=== PATIENT | male | born 1945 | race Caucasian/White ===

== ENCOUNTER 2016-09-07 15:27 | Inpatient (IN) | payer OTHER ==
[~2016-09-07] VITALS: Ht 165.1 cm; Wt 92.9 kg
[2016-09-07] MEDS: METOPROLOL TARTRATE 25 MG TAB PO SCH (00:57)
[2016-09-07] MEDS: DOCUSATE SODIUM 100 MG CAP PO SCH (00:57)
[~2016-09-07 15:27] MED LIST: ALPR-385 PO; ASMIN/60 INH; ASPI81TA28 PO; CHOL1TAB42 PO; CYAN100020 PO; GFNSR600 PO; IBUP-1105 PO; LSN5 PO; MULT-845 PO; NIFE30TA83 PO; PRT40 PO
[2016-09-07] MEDS ORDERED: NITROGLYCERIN OINT 2% 1GM PACKET EXT STA (15:46)
--- NOTE | 2016-09-07 16:08 | DIAGNOSTIC IMAGING REPORT ---
CHEST ONE VIEW PORTABLE HISTORY: Progressive. Atypical CHEST PAIN COMPARISON: Chest 05/19/2016. FINDINGS: No pneumothorax. The upper lung zones are clear. The heart is stable in size. Bibasilar interstitial thickening and hazy opacities have progressed. No pleural effusions. Emphysema. IMPRESSION: Bibasilar interstitial thickening and hazy opacities have progressed. This may represent a developing pneumonia. Electronically signed by: Torrey Villatoro M.D. 09/07/2016 4:06 PM Dictated Date/Time: 09/07/2016 4:04 PM
[2016-09-07] MEDS ORDERED: OPTIRAY 320 IV PRN (16:15)
[2016-09-07] MEDS ORDERED: ESOM45CA PO (16:22)
[2016-09-07] MEDS ORDERED: ZNTT/150 PO (16:22)
[2016-09-07] MEDS ORDERED: LISI-461 PO (16:22)
--- NOTE | 2016-09-07 16:28 | EMERGENCY ROOM VISIT NOTE ---
History Report prepared by Genoveva: Les Duong Under the Supervision of: Dr. Galindo Brown M.D. First contact with patient: 15:41 Chief Complaint: CHEST PAIN Stated Complaint: CHEST PAINS, DIFFICULTY BREATHING History of Present Illness The patient is a 71 year old male who presents to the Emergency Room with complaints of constant chest pain beginning one day prior to arrival. He currently rates his discomfort as a 4-5/10 in severity. The patient associates shortness of breath with today's symptoms. He notes his symptoms worsen with exertion and are better with rest. The patient states he was not doing anything when the pain began yesterday. He notes a history of COPD but does not wear oxygen at home. The patient states he has a history of hypertension, GERD, and pneumonia. He denies a history of a heart attack or fluid on his lungs. The patient denies a cough, fever, and vomiting. Source of History: patient Onset: one day [employer] Position: chest Symptom Intensity: 4-5/10 Timing: constant Modifying Factors (Worsening): exertion Modifying Factors (Relieving): rest Associated Symptoms: + SOB, + chest pain, No cough, No fevers, No vomiting Review of Systems See HPI for pertinent positives & negatives. A total of 10 systems reviewed and were otherwise negative. Past Medical & Surgical Medical Problems: (1) CHEST PAIN, UNSPECIFIED (2) HTN (hypertension) (3) Pneumonia of both lower lobes Surgical Problems: (1) H/O hernia repair Family History Diabetes mellitus FH: heart disease Hypertension Social History Smoking Status: Former Smoker Drug Use: none Marital Status: , Housing Status: lives with family Occupation Status: retired Current/Historical Medications Scheduled Aspirin (Aspirin Ec), 81 MG PO DAILY Cholecalciferol (Vitamin D), 5,000 INTER.UNIT PO QPM Cyanocobalamin (Vitamin B12), 1,000 MCG PO DAILY Esomeprazole Magnesium (Esomeprazole Magnesium), 20 MG PO BID Guaifenesin Ext Rel (Mucinex Ext Rel), 600 MG PO BID Lisinopril (Lisinopril), 10 MG PO QAM Mometasone Furoate (Asmanex Twisthaler 60 Met), 1 PUFF INH BID Multiple Vitamins W/ Minerals (Centrum Silver Adult 50+), 1 TAB PO DAILY Nifedipine Ext Rel (Procardia Xl Ext Rel), 30 MG PO DAILY Ranitidine (Zantac), 150 MG PO HS Scheduled PRN Alprazolam (Xanax), 0.5-1 MG PO TID PRN for Anxiety Ibuprofen (Ibuprofen), 400 MG PO TID PRN for Pain Allergies Coded Allergies: Penicillins (Verified Allergy, Unknown, HIVES, 09/07/16) Physical Exam Vital Signs Date Time Temp Pulse Resp B/P Pulse Ox O2 Delivery O2 Flow Rate FiO2 09/07/16 21:05 112 09/07/16 18:46 112 24 158/87 91 Nasal Cannula 5.0 09/07/16 17:39 115 18 122/87 97 Nebulizer 6.0 09/07/16 17:20 109 20 152/94 94 Nebulizer 6.0 09/07/16 17:00 103 22 165/97 91 Nasal Cannula 4.0 09/07/16 16:57 101 18 150/86 90 Nasal Cannula 4.0 09/07/16 16:19 102 09/07/16 15:40 Nasal Cannula 4.0 09/07/16 15:39 89 Nasal Cannula 4.0 09/07/16 15:36 96 Nasal Cannula 4.0 09/07/16 15:30 37.3 121 20 189/91 85 Room Air Physical Exam GENERAL: Patient is in no acute distress. HEENT: No acute trauma, normocephalic atraumatic, mucous membranes moist, no nasal congestion, no scleral icterus. NECK: No stridor, no adenopathy, no meningismus, trachea is midline. LUNGS: Rhonchi and crackles bilaterally. No wheezing. Breath sounds equal. No respiratory distress. HEART: Tachycardic with a regular rhythm. No murmurs. ABDOMEN: Soft, nontender, bowel sounds positive, no hernias, no peritonitis. EXTREMITIES: No cyanosis or edema, full range of motion of all the joints without pain or difficulty, no signs for acute trauma. NEUROLOGIC: Oriented x 3, no acute motor or sensory deficits, no focal weakness. SKIN: No rash, no jaundice, no diaphoresis. Medical Decision & Procedures ER Provider Diagnostic Interpretation: X ray results and stated below per my interpretation and radiologist interpretation. Other radiology results and stated below per my review and radiologist interpretation: CHEST ONE VIEW PORTABLE HISTORY: Progressive. Atypical CHEST PAIN COMPARISON: Chest 05/19/2016. FINDINGS: No pneumothorax. The upper lung zones are clear. The heart is stable in size. Bibasilar interstitial thickening and hazy opacities have progressed. No pleural effusions. Emphysema. IMPRESSION: Bibasilar interstitial thickening and hazy opacities have progressed. This may represent a developing pneumonia. Electronically signed by: Torrey Villatoro M.D. 09/07/2016 4:[address] ANGIOGRAPHY OF THE CHEST, PULMONARY EMBOLUS PROTOCOL CLINICAL HISTORY: Chest pain. Difficulty breathing. COMPARISON STUDY: Chest CT May 20, 2016 and chest radiograph September 07, 2016. TECHNIQUE: Following IV administration of 107 mL of Optiray-320, helical axial images of the chest were obtained utilizing the pulmonary embolus protocol. Maximal intensity projections and sagittal and coronal reformats were viewed on an independent 3D workstation. IV contrast was administered without complication. CT DOSE: 494.70 mGy.cm FINDINGS: No pulmonary emboli are identified. Mild cardiomegaly is noted. Several mildly enlarged bilateral hilar lymph nodes are unchanged since CT of February 28, 2014. Calcified subcarinal lymph node is present. There is no pericardial effusion. Central airways are patent. There is moderate emphysema. Several pulmonary nodules are unchanged since CT of February 28, 2014. Therefore, these are benign. There has been interval development of bilateral lower lobe consolidation, left greater the right. There is also lingular and right middle lobe airspace opacity as well as ill-defined subpleural opacity within the right upper lobe which favors an infectious process. There is no pneumothorax or pleural effusion. Bony thorax and upper abdomen are unremarkable. IMPRESSION: 1. No pulmonary emboli identified. 2. Multifocal consolidation, most evident within the bilateral lower lobes. The findings favor multifocal pneumonia. The distribution raises the possibility of aspiration. A follow-up chest CT in 3 months to ensure resolution is recommended. 3. Moderate emphysema. 4. No change in mild bilateral hilar lymphadenopathy since CT of February 28, 2014. Electronically signed by: Kingston Smiley M.D. 09/07/2016 7:15 PM Laboratory Results 09/07/16 17:00 09/07/16 17:00 Test 09/07/16 17:00 09/07/16 17:11 Red Blood Count 5.29 M/uL (4.7-6.1) Mean Corpuscular Volume 83.4 fL (80-100) Mean Corpuscular Hemoglobin 30.4 pg (25-34) Mean Corpuscular Hemoglobin Concent 36.5 g/dl (32-36) RDW Standard Deviation 38.7 fL (36.4-46.3) RDW Coefficient of Variation 12.8 % (11.5-14.5) Mean Platelet Volume 8.8 fL (7.4-10.4) Prothrombin Time 10.7 SECONDS (9.0-12.0) Prothromb Time International Ratio 1.0 (0.9-1.1) Activated Partial Thromboplast Time 28.7 SECONDS (21.0-31.0) Partial Thromboplastin Ratio 1.1 Anion Gap 10.0 mmol/L (3-11) Est Creatinine Clear Calc Drug Dose 77.6 ml/min Estimated GFR () 97.9 Estimated GFR (Non- 84.4 BUN/Creatinine Ratio 12.7 (10-20) Calcium Level 8.9 mg/dl (8.5-10.1) Total Bilirubin 0.8 mg/dl (0.2-1) Aspartate Amino Transf (AST/SGOT) 12 U/L (15-37) Alanine Aminotransferase (ALT/SGPT) 27 U/L (12-78) Alkaline Phosphatase 100 U/L (45-117) Total Creatine Kinase 170 U/L (39-308) Creatine Kinase MB 7.1 ng/ml (0.5-3.6) Creatine Kinase MB Ratio 4.2 (0-3.0) Troponin I < 0.015 ng/ml (0-0.045) Total Protein 8.2 gm/dl (6.4-8.2) Albumin 4.1 gm/dl (3.4-5.0) Globulin 4.1 gm/dl (2.5-4.0) Albumin/Globulin Ratio 1.0 (0.9-2) Bedside Troponin I 0.010 ng/ml (0-0.045) KU-Mce-O-Type Natriuretic Peptide < 15 pg/ml (0-900) Laboratory results reviewed by me. Medications Administered Medications (Trade) Dose Ordered Sig/Des Route Start Time Stop Time Status Last Admin Dose Admin Nitroglycerin (Nitroglycerin 2% Oint) 2 inch NOW STAT EXT 09/07/16 15:46 09/07/16 15:49 DC 2/14/17 16:56 2 INCH Levofloxacin (Levaquin / D5W) 750 mg NOW STAT IV 09/07/16 16:59 09/07/16 17:00 DC 09/07/16 17:37 750 MG Levalbuterol (Xopenex 1.25MG/ 0.5ML Neb) 1.25 mg NOW STAT INH 09/07/16 17:17 09/07/16 17:18 DC 09/07/16 17:30 1.25 MG Ipratropium [place] (Atrovent 0.02% 0.5MG/2.5ML Neb) 0.5 mg NOW STAT INH 09/07/16 17:17 09/07/16 17:18 DC 09/07/16 17:30 0.5 MG Acetaminophen (Tylenol Tab) 650 mg STK-MED ONCE .ROUTE 09/07/16 19:45 09/07/16 19:46 DC 09/07/16 19:45 650 MG ECG Indication: chest pain Rate (beats per minute): 101 Rhythm: sinus tachycardia Findings: ST depression (Inferior and Lateral), no ectopy Change: Repeat EKG shows no changes. ED Course 1542: The patient was evaluated in room C9. A complete history and physical exam was performed. 1546: Ordered Nitroglycerin 2 inch EXT. 1659: Ordered Levofloxacin 750 mg IV. 1717: Ordered Ipratropium Lib[place] 0.5 mg INH, Levalbuterol 1.25 mg INH. 1742: Reevaluated and updated the patient at this time. 1807: I spoke to CADEN Shetty (Hospitalist) about the patient's case, and he will follow the patient for further evaluation. 190: Updated the patient at this time on his results. Medical Decision The differential diagnoses include but are not limited to: CHF, OH, PE, aortic dissection, pneumonia, pneumothorax, bronchitis, angina. There is a mild leukocytosis which would be consistent with infection, no concerning anemia. No significant electrolyte abnormality, kidney failure or hepatitis. There is no coagulopathy. EKG shows a sinus tachycardia with some inferior and lateral ST depressions, no acute OH. Cardiac enzyme testing times one is not consistent with acute cardiac injury. Chest x-ray shows a bilateral lower lung pneumonia, no pneumothorax. Chest CT confirms bilateral pneumonia, there was no PE. Blood cultures are pending. The patient received oxygen via nasal cannula, he felt better with this. He received a Xopenex Atrovent neb, he was given IV Levaquin for antibiotic coverage. He received nitroglycerin paste for the changes on EKG. With this treatment, he feels improved. I spoke to the patient, I talked with case management. The on-call hospitalist was consulted, admission/observation is warranted. Consults Time Called: 1805 Consulting Physician: CADEN Shetty (Hospitalist) Returned Call: 1806 I spoke to CADEN Shetty (Hospitalist) about the patient's case, and he will follow the patient for further evaluation. Impression Primary Impression: Hypoxia Additional Impressions: Pneumonia Acute electrocardiogram changes Scribe Attestation The scribe's documentation has been prepared under my direction and personally reviewed by me in its entirety. I confirm that the note above accurately reflects all work, treatment, procedures, and medical decision making performed by me. Departure Information Dispostion Being Evaluated By Hospitalist (CADEN Shetty (Hospitalist)) Referrals Karrie Hernandez M.D. (PCP) Problem Qualifiers
[2016-09-07] MEDS ORDERED: LEVAQUIN 750MG / 150ML D5W IV STA (16:59)
[2016-09-07 17:12] LABS: HEMATOCRIT 44.1 % (42-52); MEAN CELL VOLUME 83.4 fL (80-100); MEAN CORPUSCULAR HEMOGLOBIN 30.4 pg (25-34); MEAN CORPUSCULAR HGB CONC 36.5 g/dl (32-36); MEAN PLATELET VOLUME 8.8 fL (7.4-10.4); PLATELET COUNT 212 K/uL (130-400); RED BLOOD COUNT 5.29 M/uL (4.7-6.1); WHITE BLOOD COUNT 11.72 K/uL (4.8-10.8)
[2016-09-07] MEDS ORDERED: LEVALBUTEROL 1.25MG/0.5ML NEB INH STA (17:17)
[2016-09-07] MEDS ORDERED: IPRATROPIUM BROMIDE NEB SOLN 0.02% 2.5 ML VIAL INH STA (17:17)
[2016-09-07 17:21] LABS: PARTIAL THROMBOPLASTIN RATIO 1.1; PROTHROMBIN TIME (PATIENT) 10.7 SECONDS (9.0-12.0)
[2016-09-07 17:26] LABS: POINT OF CARE PRO-BNP < 15 pg/ml (0-900)
[2016-09-07 17:30] LABS: ALT/SGPT 27 U/L (12-78); AST/SGOT 12 U/L (15-37); BLOOD UREA NITROGEN 11 mg/dl (7-18); BUN/CREATININE RATIO 12.7 (10-20); CALCIUM 8.9 mg/dl (8.5-10.1); CARBON DIOXIDE 24 mmol/L (21-32); CHLORIDE 104 mmol/L (98-107); GLUCOSE 96 mg/dl (70-99); POTASSIUM 3.8 mmol/L (3.5-5.1); SODIUM 138 mmol/L (136-145)
[2016-09-07 17:35] LABS: ALKALINE PHOSPHATASE 100 U/L (45-117); CKMB/CK RATIO 4.2 (0-3.0)
--- NOTE | 2016-09-07 19:16 | DIAGNOSTIC IMAGING REPORT ---
CT ANGIOGRAPHY OF THE CHEST, PULMONARY EMBOLUS PROTOCOL CLINICAL HISTORY: Chest pain. Difficulty breathing. COMPARISON STUDY: Chest CT May 20, 2016 and chest radiograph September 07, 2016. TECHNIQUE: Following IV administration of 107 mL of Optiray-320, helical axial images of the chest were obtained utilizing the pulmonary embolus protocol. Maximal intensity projections and sagittal and coronal reformats were viewed on an independent 3D workstation. IV contrast was administered without complication. CT DOSE: 494.70 mGy.cm FINDINGS: No pulmonary emboli are identified. Mild cardiomegaly is noted. Several mildly enlarged bilateral hilar lymph nodes are unchanged since CT of February 28, 2014. Calcified subcarinal lymph node is present. There is no pericardial effusion. Central airways are patent. There is moderate emphysema. Several pulmonary nodules are unchanged since CT of February 28, 2014. Therefore, these are benign. There has been interval development of bilateral lower lobe consolidation, left greater the right. There is also lingular and right middle lobe airspace opacity as well as ill-defined subpleural opacity within the right upper lobe which favors an infectious process. There is no pneumothorax or pleural effusion. Bony thorax and upper abdomen are unremarkable. IMPRESSION: 1. No pulmonary emboli identified. 2. Multifocal consolidation, most evident within the bilateral lower lobes. The findings favor multifocal pneumonia. The distribution raises the possibility of aspiration. A follow-up chest CT in 3 months to ensure resolution is recommended. 3. Moderate emphysema. 4. No change in mild bilateral hilar lymphadenopathy since CT of February 28, 2014. Electronically signed by: Kingston Smiley M.D. 09/07/2016 7:15 PM Dictated Date/Time: 09/07/2016 7:05 PM
[2016-09-07] MEDS ORDERED: ACETAMINOPHEN 325 MG TAB ONE (19:45)
--- NOTE | 2016-09-07 20:11 | Medical Student: [facility] ---
Med Student History & Physical Date & Time of Service: Sep 07, 2016 at 19:36 Chief Complaint: Chest Pains, Difficulty Breathing Primary Care Physician: Karrie Hernandez M.D. History of Present Illness Source: patient 71y/o male with a history of COPD and hospital admission for PNA presents today with a two day history of Shortness of breath with exertion. He noticed this shortness of breath when he walked out to get his newspaper, and on the way back , he began to feel short of breath. The patient has a longstanding history of dull,achy centrally located chest pain that has been diagnosed as acid reflux. However, he is concerned that it could be cardiac and the pain has been more significant in recent days. He also states that his heart has been racing in recent days. He denies fever, chills, sweats, cough, leg swelling, and congestion. The patient was given NTG earlier in the hospital course and currently states that he has a headache and some eye pain. He also complains of a chronic pain in between his shoulder blades. Past Medical/Surgical History Medical Problems: (1) PNA 2. COPD 3. Hypertension 4. Acid Reflux Surgical history: 1. Hernia repair Family History Father: congestive heart failure, heart disease, diabetes Social History Smoking Status: Former Smoker (quit one year ago) Alcohol Use: none Drug Use: none Marital Status: , Housing status: lives with family Occupational Status: retired Allergies Coded Allergies: Penicillins (Verified Allergy, Unknown, HIVES, 09/07/16) Medications Alprazolam (Xanax), 0.5-1 MG PO TID PRN for Anxiety Aspirin (Aspirin Ec), 81 MG PO DAILY Cholecalciferol (Vitamin D), 5,000 INTER.UNIT PO QPM Cyanocobalamin (Vitamin B12), 1,000 MCG PO DAILY Esomeprazole Magnesium (Esomeprazole Magnesium), 20 MG PO BID Guaifenesin Ext Rel (Mucinex Ext Rel), 600 MG PO BID Ibuprofen (Ibuprofen), 400 MG PO TID PRN for Pain Lisinopril (Lisinopril), 10 MG PO QAM Mometasone Furoate (Asmanex Twisthaler 60 Met), 1 PUFF INH BID Multiple Vitamins W/ Minerals (Centrum Silver Adult 50+), 1 TAB PO DAILY Nifedipine Ext Rel (Procardia Xl Ext Rel), 30 MG PO DAILY Ranitidine (Zantac), 150 MG PO HS Review of Systems Constitutional: No chills, No fever, No sweats Eyes: + eye pain, No discharge, No redness, No worsening of vision ENT: No hearing loss, No sore throat Respiratory: + dyspnea on exertion, No hemoptysis Cardiovascular: + chest pain, + palpitations, No edema Abdomen: No constipation, No diarrhea, No nausea, No pain, No vomiting Musculoskeletal: No joint pain, No swelling Neurologic: No memory loss, No numbness/tingling, No paralysis Psychiatric: No anhedonism, No depression symptoms Integumentary: No itch, No new/changing skin lesions, No rash Physical Exam Vital Signs (24 Hours) Date Time Temp Pulse Resp B/P Pulse Ox O2 Delivery O2 Flow Rate FiO2 09/07/16 18:46 112 24 158/87 91 Nasal Cannula 5.0 09/07/16 17:39 115 18 122/87 97 Nebulizer 6.0 09/07/16 17:20 109 20 152/94 94 Nebulizer 6.0 09/07/16 17:00 103 22 165/97 91 Nasal Cannula 4.0 09/07/16 16:57 101 18 150/86 90 Nasal Cannula 4.0 09/07/16 16:19 102 09/07/16 15:40 Nasal Cannula 4.0 09/07/16 15:39 89 Nasal Cannula 4.0 09/07/16 15:36 96 Nasal Cannula 4.0 09/07/16 15:30 37.3 121 20 189/91 85 Room Air General Appearance: WD/WN, no apparent distress Head: normocephalic, atraumatic Eyes: normal inspection, EOMI Respiratory/Chest: chest non-tender, no respiratory distress, no accessory muscle use, + pertinent finding (crackles bilaterally at the bases) Cardiovascular: regular rate, rhythm, no edema, no gallop, no murmur Abdomen/GI: normal bowel sounds, non tender, soft Extremities/Musculoskelatal: normal inspection, no pedal edema Neurologic/Psych: alert, normal mood/affect, oriented x 3 Skin: normal color, warm/dry, no rash Diagnostics Laboratory Results Results Past 24 Hours Test 09/07/16 17:00 09/07/16 17:11 Range/Units White Blood Count 11.72 4.8-10.8 K/uL Red Blood Count 5.29 4.7-6.1 M/uL Hemoglobin 16.1 14.0-18.0 g/dL Hematocrit 44.1 42-52 % Mean Corpuscular Volume 83.4 80-100 fL Mean Corpuscular Hemoglobin 30.4 25-34 pg Mean Corpuscular Hemoglobin Concent 36.5 32-36 g/dl RDW Standard Deviation 38.7 36.4-46.3 fL RDW Coefficient of Variation 12.8 11.5-14.5 % Platelet Count 212 130-400 K/uL Mean Platelet Volume 8.8 7.4-10.4 fL Prothrombin Time 10.7 9.0-12.0 SECONDS Prothromb Time International Ratio 1.0 0.9-1.1 Activated Partial Thromboplast Time 28.7 21.0-31.0 SECONDS Partial Thromboplastin Ratio 1.1 Sodium Level 138 136-145 mmol/L Potassium Level 3.8 3.5-5.1 mmol/L Chloride Level 104 98-107 mmol/L Carbon Dioxide Level 24 21-32 mmol/L Anion Gap 10.0 3-11 mmol/L Blood Urea Nitrogen 11 7-18 mg/dl Creatinine 0.90 0.60-1.40 mg/dl Est Creatinine Clear Calc Drug Dose 77.6 ml/min Estimated GFR () 97.9 Estimated GFR (Non- 84.4 BUN/Creatinine Ratio 12.7 10-20 Random Glucose 96 70-99 mg/dl Calcium Level 8.9 8.5-10.1 mg/dl Total Bilirubin 0.8 0.2-1 mg/dl Aspartate Amino Transf (AST/SGOT) 12 15-37 U/L Alanine Aminotransferase (ALT/SGPT) 27 12-78 U/L Alkaline Phosphatase 100 45-117 U/L Total Creatine Kinase 170 39-308 U/L Creatine Kinase MB 7.1 0.5-3.6 ng/ml Creatine Kinase MB Ratio 4.2 0-3.0 Troponin I < 0.015 0-0.045 ng/ml Total Protein 8.2 6.4-8.2 gm/dl Albumin 4.1 3.4-5.0 gm/dl Globulin 4.1 2.5-4.0 gm/dl Albumin/Globulin Ratio 1.0 0.9-2 Bedside Troponin I 0.010 0-0.045 ng/ml MN-Rxi-[id number]-Type Natriuretic Peptide < 15 0-900 pg/ml Microbiology Results 09/07/16 Blood Culture, Received Pending 09/07/16 Blood Culture, Received Pending Diagnostic Radiology CXR: IMPRESSION: Bibasilar interstitial thickening and hazy opacities have progressed. This may represent a developing pneumonia. Chest/Thorax CTA IMPRESSION: 1. No pulmonary emboli identified. 2. Multifocal consolidation, most evident within the bilateral lower lobes. The findings favor multifocal pneumonia. The distribution raises the possibility of aspiration. A follow-up chest CT in 3 months to ensure resolution is recommended. 3. Moderate emphysema. 4. No change in mild bilateral hilar lymphadenopathy since CT of February 28, 2014. EKG When compared to ECG in April 2016, there are new non-specific T-wave abnormalities in the inferior leads Impression Assessment and Plan 71y/o male with a history of COPD and PNA presents with a two day history of chest pain and shortness of breath. A CXR and CT of the chest both show bilateral PNA. Pneumonia- Continue to administer Levaquin 750mg IV. Consider the addition of Ceftriaxone IV for increased coverage of this patient's PNA. Administer Levalbuterol 1.25mg INH and Ipratropium [place] INH for symptom control. Repeat CXR to monitor improvement. Follow CBC, chem profile. Blood cultures pending. Chest Pain- There are some ecg changes on the ecg that was performed today. The patient has a long history of chest pain and states that his current CP is similar to previous instances. Initial troponin was negative. Serial cardiac enzymes. Consider ordering echo. Repeat ecg. Administer ASA 81mg PO daily. NTG as needed for chest pain. COPD- Administer Mometasone Furoate 1 Puff INH BID. O2 nasal canula as needed for shortness of breath. Continue to monitor O2 saturation, with a goal of 90-94 %. Hypertension- Administer Lisinopril 10mg PO QAM and Nifedipine 30mg PO daily. Acid reflux- Administer Esomeprazole Magnesium 20 mg PO BID and Ranitidine 150mg PO HS. Vitamin Supplementation- Administer Vitamin D 5000 units PO QPM, Multivitamin 1 tab PO daily, and Vitamin B12 1000 mcg PO daily.
[2016-09-07] MEDS ORDERED: BISACODYL 10 MG SUPP PR PRN (20:30)
[2016-09-07] MEDS ORDERED: MoRPHine SULFATE 2 MG/ML CARP IV PRN (20:30)
[2016-09-07] MEDS ORDERED: DiphenhydrAMINE HCL 50 MG/ML VIAL IV PRN (20:30)
[2016-09-07] MEDS ORDERED: MAGNESIUM HYDROXIDE SUSP 30 ML UDC PO PRN (20:30)
[2016-09-07] MEDS ORDERED: ZOLPIDEM TARTRATE 5 MG TAB PO PRN (20:30)
[2016-09-07] MEDS ORDERED: ALUMINUM/MAGNESIUM/SIMETH (MAALOX MAX) 30 ML UDC PO PRN (20:30)
[2016-09-07] MEDS ORDERED: LORAZEPAM 2 MG/ML 1 ML VIAL IV PRN (20:30)
[2016-09-07] MEDS ORDERED: PROMETHAZINE HCL INJ 12.5 MG in SODIUM CHLORIDE 0.9% 50ML 50 ML IV PRN (20:30)
[2016-09-07] MEDS ORDERED: ONDANSETRON INJ 2 MG/ML 2 ML VIAL IV PRN (20:30)
[2016-09-07] MEDS ORDERED: NITROGLYCERIN 0.4 MG SL PER TAB CHARGE SL PRN (20:30)
[2016-09-07] MEDS ORDERED: METOPROLOL TARTRATE 25 MG TAB PO STA (20:38)
[2016-09-07] MEDS ORDERED: DILTIAZEM HCL 180 MG CAPCR PO SCH (21:00)
[2016-09-07] MEDS ORDERED: LEVALBUTEROL/IPRATROPIUM NEB INH SCH (21:00)
[2016-09-07] MEDS ORDERED: GUAIFENESIN 600 MG TABCR PO SCH (21:00)
[2016-09-07] MEDS ORDERED: IPRATROPIUM BROMIDE NEB SOLN 0.02% 2.5 ML VIAL INH PRN (22:15)
[2016-09-07] MEDS ORDERED: LEVALBUTEROL 1.25MG/0.5ML NEB INH PRN (22:15)
[2016-09-07] MEDS ORDERED: CEFTRIAXONE SOD INJ 1 GM in DEXTROSE 5% ADD-VANTAGE 50ML 50 ML IV SCH (22:30)
[2016-09-07] MEDS: ALPRAZOLAM 0.5 MG TAB PO PRN (23:58)
[2016-09-08] VITALS (10 sets, daily range): BP systolic 104–145; BP diastolic 59–77; PULSE 55–96; TEMP 36.6–36.8; O2SAT 88–98; Ht 165.1 cm; Wt 92.9 kg
[2016-09-08] MEDS: RANITIDINE HCL 150 MG TAB PO SCH ×2 (00:02→20:47)
[2016-09-08] MEDS: GUAIFENESIN 600 MG TABCR PO SCH ×3 (00:03→20:47)
[2016-09-08] MEDS ORDERED: MoRPHine SULFATE 2 MG/ML CARP ONE (00:45)
[2016-09-08] MEDS: METHYLPREDNISOLONE IV 40 MG in SYRINGE 0 ML IV SCH ×2 (00:57→08:52)
--- NOTE | 2016-09-08 02:12 | History and Physical ---
History & Physical Date & Time of Service: Sep 08, 2016 at 02:03 Chief Complaint: Hypoxia; Pneumonia Of Both Lower Lobes Primary Care Physician: Karrie Hernandez M.D. History of Present Illness Source: patient The patient is a 71-year-old male who presents emergency department with complaint of chest pain and shortness of breath that began 1 day prior to arrival. His symptoms are worse with exertion and are improved with rest. He has a known history of COPD and has had pneumonia in the past. Past Medical/Surgical History Medical Problems: (1) HTN (hypertension) Status: Chronic Surgical Problems: (1) H/O hernia repair Status: Resolved Family History Diabetes mellitus FH: heart disease Hypertension Social History Smoking Status: Former Smoker (quit one year ago) Alcohol Use: none Drug Use: none Marital Status: , Housing status: lives with family Occupational Status: retired Multi-Drug Resistant Organisms History of MDRO: No Allergies Coded Allergies: Penicillins (Verified Allergy, Unknown, HIVES, 09/07/16) Home Medications Scheduled Aspirin (Aspirin Ec), 81 MG PO DAILY Cholecalciferol (Vitamin D), 5,000 INTER.UNIT PO QPM Cyanocobalamin (Vitamin B12), 1,000 MCG PO DAILY Esomeprazole Magnesium (Esomeprazole Magnesium), 20 MG PO BID Guaifenesin Ext Rel (Mucinex Ext Rel), 600 MG PO BID Lisinopril (Lisinopril), 10 MG PO QAM Mometasone Furoate (Asmanex Twisthaler 60 Met), 1 PUFF INH BID Multiple Vitamins W/ Minerals (Centrum Silver Adult 50+), 1 TAB PO DAILY Nifedipine Ext Rel (Procardia Xl Ext Rel), 30 MG PO DAILY Ranitidine (Zantac), 150 MG PO HS Scheduled PRN Alprazolam (Xanax), 0.5-1 MG PO TID PRN for Anxiety Ibuprofen (Ibuprofen), 400 MG PO TID PRN for Pain Review of Systems The patient denies palpitations, lower extremity swelling, vision change, hearing change, sore throat, fevers, chills, sweats, weight change, fatigue, nausea, vomiting, abdominal pain, pelvic pain, blood in urine or stool, dysuria , urinary frequency or urgency, lightheadedness, dizziness, headache, memory loss, rash, abnormal bruising or bleeding, imbalance, focal or generalized weakness, numbness or tingling in arms or legs, arthralgias or myalgias, back or neck pain, night sweats. The review of systems is otherwise negative other than for that already noted above, and at least 10 systems have been reviewed. Physical Exam Vital Signs Date Time Temp Pulse Resp B/P Pulse Ox O2 Delivery O2 Flow Rate FiO2 09/08/16 00:57 109 28 131/79 88 Nasal Cannula 5.0 09/08/16 00:10 105 22 105/65 90 Nasal Cannula 5.0 09/07/16 22:47 113 18 90 Nasal Cannula 5.0 09/07/16 22:37 111 19 90 09/07/16 22:27 116 10 87 09/07/16 22:17 123 18 89 09/07/16 22:12 113/80 09/07/16 21:27 119 17 87 09/07/16 21:17 119 16 87 09/07/16 21:07 110 21 89 09/07/16 21:05 112 09/07/16 20:58 111/58 09/07/16 20:57 114 20 88 09/07/16 20:47 112 21 90 09/07/16 20:37 117 21 88 09/07/16 20:27 117 20 89 09/07/16 20:17 111 15 87 09/07/16 20:07 109 15 89 09/07/16 19:58 122/70 09/07/16 19:57 111 18 90 09/07/16 19:47 119 21 91 09/07/16 19:37 112 20 91 09/07/16 19:27 117 19 96 09/07/16 19:17 113 15 92 09/07/16 19:07 111 16 90 09/07/16 19:04 133/76 09/07/16 18:58 133/76 09/07/16 18:57 109 20 91 09/07/16 18:47 111 17 93 09/07/16 18:46 112 24 158/87 91 Nasal Cannula 5.0 09/07/16 17:39 115 18 122/87 97 Nebulizer 6.0 09/07/16 17:20 109 20 152/94 94 Nebulizer 6.0 09/07/16 17:00 103 22 165/97 91 Nasal Cannula 4.0 09/07/16 16:57 101 18 150/86 90 Nasal Cannula 4.0 09/07/16 16:19 102 09/07/16 15:40 Nasal Cannula 4.0 09/07/16 15:39 89 Nasal Cannula 4.0 09/07/16 15:36 96 Nasal Cannula 4.0 09/07/16 15:30 37.3 121 20 189/91 85 Room Air The patient is awake, well-developed and adequately nourished, alert and oriented 3, normocephalic and atraumatic, lying in bed and in no acute distress. HEENT--PERRL, EOMI, mucous membranes and oropharynx dry. Neck--supple, no JVD or bruits, thyroid normal, trachea midline, no adenopathy. Heart--normal S1 and S2, no extra beats, no murmurs, rubs or gallops. Lungs--crackles at the bases bilaterally, no respiratory distress, no accessory muscle use. Abdomen--normal bowel sounds and soft, nontender and nondistended, no hernias or masses, no organomegaly. Extremities--no cyanosis, clubbing or edema. There are good distal pulses b/l. Dermatologic--normal skin turgor, normal color, warm and dry, no abnormal lymph nodes, no rash. Neurologic--cranial nerves II through XII grossly intact, motor and sensory examination normal. Rheumatologic--normal range of motion, nontender, muscles and joints. Psychiatric--normal affect. Diagnostics Laboratory Results Results Past 24 Hours Test 09/07/16 17:00 09/07/16 17:11 Range/Units White Blood Count 11.72 4.8-10.8 K/uL Red Blood Count 5.29 4.7-6.1 M/uL Hemoglobin 16.1 14.0-18.0 g/dL Hematocrit 44.1 42-52 % Mean Corpuscular Volume 83.4 80-100 fL Mean Corpuscular Hemoglobin 30.4 25-34 pg Mean Corpuscular Hemoglobin Concent 36.5 32-36 g/dl RDW Standard Deviation 38.7 36.4-46.3 fL RDW Coefficient of Variation 12.8 11.5-14.5 % Platelet Count 212 130-400 K/uL Mean Platelet Volume 8.8 7.4-10.4 fL Prothrombin Time 10.7 9.0-12.0 SECONDS Prothromb Time International Ratio 1.0 0.9-1.1 Activated Partial Thromboplast Time 28.7 21.0-31.0 SECONDS Partial Thromboplastin Ratio 1.1 Sodium Level 138 136-145 mmol/L Potassium Level 3.8 3.5-5.1 mmol/L Chloride Level 104 98-107 mmol/L Carbon Dioxide Level 24 21-32 mmol/L Anion Gap 10.0 3-11 mmol/L Blood Urea Nitrogen 11 7-18 mg/dl Creatinine 0.90 0.60-1.40 mg/dl Est Creatinine Clear Calc Drug Dose 77.6 ml/min Estimated GFR () 97.9 Estimated GFR (Non- 84.4 BUN/Creatinine Ratio 12.7 10-20 Random Glucose 96 70-99 mg/dl Calcium Level 8.9 8.5-10.1 mg/dl Total Bilirubin 0.8 0.2-1 mg/dl Aspartate Amino Transf (AST/SGOT) 12 15-37 U/L Alanine Aminotransferase (ALT/SGPT) 27 12-78 U/L Alkaline Phosphatase 100 45-117 U/L Total Creatine Kinase 170 39-308 U/L Creatine Kinase MB 7.1 0.5-3.6 ng/ml Creatine Kinase MB Ratio 4.2 0-3.0 Troponin I < 0.015 0-0.045 ng/ml Total Protein 8.2 6.4-8.2 gm/dl Albumin 4.1 3.4-5.0 gm/dl Globulin 4.1 2.5-4.0 gm/dl Albumin/Globulin Ratio 1.0 0.9-2 Bedside Troponin I 0.010 0-0.045 ng/ml DU-Vgt-H-Type Natriuretic Peptide < 15 0-900 pg/ml Microbiology Results 09/07/16 Blood Culture, Received Pending 09/07/16 Blood Culture, Received Pending Diagnostic Radiology Patient Name: DAVINA RAMOS Unit Number: [id number] Dictated: 09/07/161904 Transcribed: 09/07/161904 JA Printed Date/Time: [~ rep prt dt]/[~ rep prt tm] [~ rep ct labl] - [~ rep ct ivnm] [facility] [address] Dictated: 09/07/161904 Transcribed: 09/07/161904 JA Printed Date/Time: [~ rep prt dt]/[~ rep prt tm] [~ rep ct labl] - [~ rep ct ivnm] CT ANGIOGRAPHY OF THE CHEST, PULMONARY EMBOLUS PROTOCOL CLINICAL HISTORY: Chest pain. Difficulty breathing. COMPARISON STUDY: Chest CT May 20, 2016 and chest radiograph September 07, 2016. TECHNIQUE: Following IV administration of 107 mL of Optiray-320, helical axial images of the chest were obtained utilizing the pulmonary embolus protocol. Maximal intensity projections and sagittal and coronal reformats were viewed on an independent 3D workstation. IV contrast was administered without complication. CT DOSE: 494.70 mGy.cm FINDINGS: No pulmonary emboli are identified. Mild cardiomegaly is noted. Several mildly enlarged bilateral hilar lymph nodes are unchanged since CT of February 28, 2014. Calcified subcarinal lymph node is present. There is no pericardial effusion. Central airways are patent. There is moderate emphysema. Several pulmonary nodules are unchanged since CT of February 28, 2014. Therefore, these are benign. There has been interval development of bilateral lower lobe consolidation, left greater the right. There is also lingular and right middle lobe airspace opacity as well as ill-defined subpleural opacity within the right upper lobe which favors an infectious process. There is no pneumothorax or pleural effusion. Bony thorax and upper abdomen are unremarkable. IMPRESSION: 1. No pulmonary emboli identified. 2. Multifocal consolidation, most evident within the bilateral lower lobes. The findings favor multifocal pneumonia. The distribution raises the possibility of aspiration. A follow-up chest CT in 3 months to ensure resolution is recommended. 3. Moderate emphysema. 4. No change in mild bilateral hilar lymphadenopathy since CT of February 28, 2014. Electronically signed by: Kingston Smiley M.D. 09/07/2016 7:15 PM Dictated Date/Time: 09/07/2016 7:05 PM The status of this report is Signed. Draft = Not yet reviewed or approved by Radiologist. Signed = Reviewed and approved by Radiologist. <AttendingPhy></AttendingPhy> <FamilyPhy>Karrie Hernandez M.D.</FamilyPhy > <PrimaryPhy>Karrie Hernandez M.D.</PrimaryPhy> <UnitNumber>[id number]</ UnitNumber> <VisitNumber>[id number]</VisitNumber> <PatientName>DAVINA RAMOS</ PatientName> <DateOfBirth>1945</DateOfBirth> <Location>[facility]</Location> < ServiceDate>09/07/16</ServiceDate> <MNE>ESINDI</MNE> <OrderingPhy>Galindo Brown M.D.</OrderingPhy> <OrderingPhyMNE>f rep ord dr gee</OrderingPhyMNE> < DictatingPhyMNE>f rep dict dr gee</DictatingPhyMNE> <CCListMNE>f rep ct mne</ CCListMNE> <AdmittingPhyMNE>f pt admit dr gee</AdmittingPhyMNE> <AttendingPhyMNE >f pt attend dr gee</AttendingPhyMNE> <ConsultingPhyMNE>f pt consult dr gee</ConsultingPhyMNE> <FamilyPhyMNE>f pt fam dr gee</FamilyPhyMNE> <OtherPhyMNE>f pt other dr gee</OtherPhyMNE> < PrimaryPhyMNE>f pt prim care dr gee</PrimaryPhyMNE> <ReferringPhyMNE>f pt referring dr gee</ReferringPhyMNE> Patient Name: DAVINA RAMOS Unit Number: [id number] Dictated: 09/07/161603 Transcribed: 09/07/161603 [facility] Printed Date/Time: [~ rep prt dt]/[~ rep prt tm] [~ rep ct labl] - [~ rep ct ivnm] [facility] [address] Dictated: 09/07/161603 Transcribed: 09/07/161603 [facility] Printed Date/Time: [~ rep prt dt]/[~ rep prt tm] [~ rep ct labl] - [~ rep ct ivnm] [~ rep ct add3]] CHEST ONE VIEW PORTABLE HISTORY: Progressive. Atypical CHEST PAIN COMPARISON: Chest 05/19/2016. FINDINGS: No pneumothorax. The upper lung zones are clear. The heart is stable in size. Bibasilar interstitial thickening and hazy opacities have progressed. No pleural effusions. Emphysema. IMPRESSION: Bibasilar interstitial thickening and hazy opacities have progressed. This may represent a developing pneumonia. Electronically signed by: Torrey Villatoro M.D. 09/07/2016 4:06 PM Dictated Date/Time: 09/07/2016 4:04 PM The status of this report is Signed. Draft = Not yet reviewed or approved by Radiologist. Signed = Reviewed and approved by Radiologist. <AttendingPhy></AttendingPhy> <FamilyPhy>Karrie Hernandez M.D.</FamilyPhy > <PrimaryPhy>Karrie Hernandez M.D.</PrimaryPhy> <UnitNumber>[id number]</ UnitNumber> <VisitNumber>[id number]</VisitNumber> <PatientName>DAVINA RAMOS</ PatientName> <DateOfBirth>1945</DateOfBirth> <Location>[facility]</Location> < ServiceDate>09/07/16</ServiceDate> <MNE>ESINDI</MNE> <OrderingPhy>Galindo Brown M.D.</OrderingPhy> <OrderingPhyMNE>f rep ord dr gee</OrderingPhyMNE> < DictatingPhyMNE>f rep dict dr gee</DictatingPhyMNE> <CCListMNE>f rep ct marlen</ CCListMNE> <AdmittingPhyMNE>f pt admit dr gee</AdmittingPhyMNE> <AttendingPhyMNE >f pt attend dr gee</AttendingPhyMNE> <ConsultingPhyMNE>f pt consult dr gee</ConsultingPhyMNE> <FamilyPhyMNE>f pt fam dr gee</FamilyPhyMNE> <OtherPhyMNE>f pt other dr gee</OtherPhyMNE> < PrimaryPhyMNE>f pt prim care dr gee</PrimaryPhyMNE> <ReferringPhyMNE>f pt referring dr gee</ReferringPhyMNE> EKG EKG shows sinus tachycardia at 101 bpm, with T-wave flattening in inferior leads and ST depression in V4 through V6. Impression Assessment and Plan Pneumonia of both lower lobes/hypoxia--the patient will be admitted, and placed on ceftriaxone 1 g IV daily, levofloxacin 500 mg IV daily, guaifenesin 6 mg by mouth twice a day, Solu-Medrol 40 mg IV every 8 hours and Xopenex with Atrovent nebulizers to use every 6 hours while awake and every 2 hours when necessary. Abnormal EKG--patient will be admitted to the telemetry unit, for serial cardiac enzymes, cardiac rhythm monitoring and a 2-D echocardiogram with Dopplers. Place on metoprolol tartrate 25 mg by mouth twice a day and continue on lisinopril 10 mg by mouth every morning and aspirin 81 mg by mouth daily. We will hold nifedipine extended release 30 mg by mouth daily. GERD--change Nexium 20 mg by mouth twice a day to pantoprazole 40 mg by mouth twice a day. Continue ranitidine 150 mg by mouth at bedtime. Vitamin B-12 deficiency continue supplement 1000 g by mouth daily Level of Care Telemetry Advanced Directives Existing Advance Directive: No Existing Living Will: No Existing Power of Shellfish Bed Worker: No Resuscitation Status FULL RESUSCITATION VTE Prophylaxis VTE Risk Assessment Done? Y/N: Yes Risk Level: Moderate Given or contraindicated: SCD's
[2016-09-08] MEDS: LEVALBUTEROL 1.25MG/0.5ML NEB INH SCH ×4 (02:13→19:49)
[2016-09-08] MEDS: IPRATROPIUM BROMIDE NEB SOLN 0.02% 2.5 ML VIAL INH SCH ×4 (02:13→19:49)
[2016-09-08] MEDS: ACETAMINOPHEN 325 MG TAB PO PRN ×2 (06:11→22:30)
[2016-09-08] MEDS: PANTOprazole SOD 40 MG TAB PO SCH (08:28)
[2016-09-08] MEDS: CHOLECALCIFEROL 1000 INTER.UNIT TAB PO SCH (08:28)
[2016-09-08] MEDS: ASPIRIN 81 MG ECTAB PO SCH (08:29)
[2016-09-08] MEDS: CYANOCOBALAMIN 500 MCG TAB (VIT B-12) PO SCH (08:30)
[2016-09-08] MEDS: LISINOPRIL 10 MG TAB PO SCH (08:30)
[2016-09-08] MEDS: DOCUSATE SODIUM 100 MG CAP PO SCH ×2 (08:30→20:47)
[2016-09-08] MEDS: CEROVITE ADV FORMULA TAB PO SCH (08:31)
[2016-09-08] MEDS: METOPROLOL TARTRATE 25 MG TAB PO SCH ×2 (08:31→20:47)
[2016-09-08] MEDS ORDERED: NIFEdipine 30 MG CR TAB PO SCH (09:00)
[2016-09-08] MEDS: ALPRAZOLAM 0.5 MG TAB PO PRN ×3 (10:10→22:30)
--- NOTE | 2016-09-08 11:59 | Progress Note ---
Internal Med Progress Note Date of Service: Sep 08, 2016. (Galindo Valdez PA-C) Provider Documentation: SUBJECTIVE: This is a 71 yo male that was admitted yesterday for SOB that started acutely on Tuesday. He was at a birthday green party for a grandson. He did not have anything to eat and had no dysphagia with drinking. He denies cough or acute problems on Tuesday. As they were leaving the green party, he noted to his that he had sudden SOB and chest pain that radiated across the entire chest. This then improved. Yesterday, he began to have increasing chest pain and tightness across the precordia. He also had some chills and felt febrile. He denies any rigors. He has a daily BM and denies diarrhea. His urine output is as per usual. He denies hematuria. Over the past 2 days, he has had an increase in purulent appearing sputum but denies hemoptysis. He occasionally has edema at the sock line with no other reported edema. He does follow with Dr. Ritter from pulmonary and just had a follow up appt last month. He does not need f/u for one year. Dr. Ritter reports that pulmonary nodules are chronic and have improved since the patient quit smoking 14 months ago. The patient has no other acute complaints and actually feels at baseline and is questioning discharge plan. He is looking forward to seeing Dr. Corbett from the hospitalist service later today. OBJECTIVE: Vital Signs-as noted below Exam: General-NAD. Pleasant Eyes-Equal and reactive. Gaze conjugate ENT-NC in place. Dentures in place. No oral candidiasis or lesions Neck-Supple. No stridor Lungs-Bibasilar crackles. No bronchospasm. Good inspirational effort Heart-Regular, rate controlled Abdomen-Soft, NT, ND, BS present. No pain to palpation Extremities-No LE edema. Pedal pulses intact and equal Neuro-A+OX3 Lab data as noted below. ASSESSMENT & PLAN: B/L PNEUMONIA No hx of aspiration or gysphagia per patient Previous admission in 04/2016 for PNA - no sputum cx checked Hx COPD with no hx of respiratory failure - Follows with Dr. Ritter in pulmonary F /U scheduled for one year Started on Ceftriaxone 1gm daily and Levofloxacin 50 mg IV daily Continues with expectoration of dark adame sputum - no hemoptysis Chest pain resolved No fever or chills Consider discontinuing Ceftriaxone and change Levofloxacin to 750mg PO Daily - qTc 429 - no renal failure Would treat for 10 days and follow up with Dr. Ritter on discharge for recurrent pneumonia CHEST PAIN Patient reports chronic daily chest pain from severe GERD for years Non-specific ST changes on EKG - slight ST depression in V4, V5, V6 No elevation of Troponin, slight elevation of CK-MB No arrhythmias on telemetry Chest pain now resolved CT Chest with no evidence of pulmonary embolism Continue beta blockade and lisinopril Continue ASA 81mg COPD Continue Levofloxacin for PNA Started on Methylprednisolone 40mg IV q8h No expiratory wheezes - discontinue steroids Continue bronchodilators Oxygenation adequate on room air Start incentive spirometry GERD Patient with hx of severe GERD Changed to Pantoprazole (Formulary) Continue Ranitidine HTN Hemodynamically stable Continue home meds DVT PROPHYLAXIS SCDs and TEDs ordered No hx of DVT No LE edema Increase ambulation DISPOSITION B/L Lower Lobe Pneumonia Anticipate discharge home NSR on telemetry (Galindo Valdez PA-C) Vital Signs: Date Time Temp Pulse Resp B/P Pulse Ox O2 Delivery O2 Flow Rate FiO2 09/08/16 16:00 95 Room Air 09/08/16 15:50 36.8 96 16 137/72 92 Room Air 2.0 09/08/16 14:05 84 20 88 Room Air 09/08/16 12:00 95 Room Air 09/08/16 07:05 89 09/08/16 07:00 36.6 88 20 104/77 90 Nasal Cannula 5.0 09/08/16 07:00 92 20 90 Nasal Cannula 5.0 09/08/16 05:53 88 22 111/69 88 Nasal Cannula 5.0 09/08/16 04:00 91 24 119/77 87 Nasal Cannula 5.0 09/08/16 02:14 92 18 09/08/16 02:02 93 17 112/71 93 Room Air 09/08/16 01:00 110 24 145/81 88 Nasal Cannula 5.0 09/08/16 00:57 109 28 131/79 88 Nasal Cannula 5.0 09/08/16 00:10 105 22 105/65 90 Nasal Cannula 5.0 09/07/16 22:47 113 18 90 Nasal Cannula 5.0 09/07/16 22:37 111 19 90 09/07/16 22:27 116 10 87 09/07/16 22:17 123 18 89 09/07/16 22:12 113/80 09/07/16 21:27 119 17 87 09/07/16 21:17 119 16 87 09/07/16 21:07 110 21 89 09/07/16 21:05 112 09/07/16 20:58 111/58 09/07/16 20:57 114 20 88 09/07/16 20:47 112 21 90 09/07/16 20:37 117 21 88 09/07/16 20:27 117 20 89 09/07/16 20:17 111 15 87 09/07/16 20:07 109 15 89 09/07/16 19:58 122/70 09/07/16 19:57 111 18 90 09/07/16 19:47 119 21 91 09/07/16 19:37 112 20 91 09/07/16 19:27 117 19 96 09/07/16 19:17 113 15 92 09/07/16 19:07 111 16 90 09/07/16 19:04 133/76 09/07/16 18:58 133/76 09/07/16 18:57 109 20 91 09/07/16 18:47 111 17 93 09/07/16 18:46 112 24 158/87 91 Nasal Cannula 5.0 (Silvia Corbett MD) Lab Results: Results Past 24 Hours Test 09/08/16 08:50 09/08/16 12:35 Range/Units Troponin I < 0.015 0-0.045 ng/ml White Blood Count 11.64 4.8-10.8 K/uL Red Blood Count 4.90 4.7-6.1 M/uL Hemoglobin 15.1 14.0-18.0 g/dL Hematocrit 41.9 42-52 % Mean Corpuscular Volume 85.5 80-100 fL Mean Corpuscular Hemoglobin 30.8 25-34 pg Mean Corpuscular Hemoglobin Concent 36.0 32-36 g/dl Platelet Count 234 130-400 K/uL Mean Platelet Volume 9.6 7.4-10.4 fL Neutrophils (%) (Auto) 93.1 % Lymphocytes (%) (Auto) 6.2 % Monocytes (%) (Auto) 0.5 % Eosinophils (%) (Auto) 0.0 % Basophils (%) (Auto) 0.0 % Neutrophils # (Auto) 10.84 1.4-6.5 K/uL Lymphocytes # (Auto) 0.72 1.2-3.4 K/uL Monocytes # (Auto) 0.06 0.11-0.59 K/uL Eosinophils # (Auto) 0.00 0-0.5 K/uL Basophils # (Auto) 0.00 0-0.2 K/uL RDW Standard Deviation 41.9 36.4-46.3 fL RDW Coefficient of Variation 13.4 11.5-14.5 % Immature Granulocyte % (Auto) 0.2 % Immature Granulocyte # (Auto) 0.02 0.00-0.02 K/uL Sodium Level 139 136-145 mmol/L Potassium Level 4.0 3.5-5.1 mmol/L Chloride Level 104 98-107 mmol/L Carbon Dioxide Level 23 21-32 mmol/L Anion Gap 12.0 3-11 mmol/L Blood Urea Nitrogen 17 7-18 mg/dl Creatinine 1.20 0.60-1.40 mg/dl Est Creatinine Clear Calc Drug Dose 58.2 ml/min Estimated GFR () 69.1 Estimated GFR (Non- 59.6 BUN/Creatinine Ratio 14.3 10-20 Random Glucose 148 70-99 mg/dl Calcium Level 9.2 8.5-10.1 mg/dl Magnesium Level 2.2 1.8-2.4 mg/dl (Silvia Corbett MD) Reviewed: Pt Seen/Exam by Me, DONN Notes, Prior Records, Labs, RAD, EKG (Silvia Corbett MD) History Physician Process Tech Supervision Note: I interviewed and examined the patient. Discussed with SALVADOR Valdez and agree with findings and plan as documented in the note. Any exceptions or clarifications are listed here: Pt feeling better since admission, still coughing up lots of sputum, placed back on 2LNC for POx 87% on RA. Continues to have atypical chest pain multiple times per day for the last 3 months that is across the chest, comes on always at rest, lasts 5-30 min, goes away on its own, not associated with SOB necessarily. He has not yet had any sort of cardiac workup as an outpatient for this-PCP tried to get Nuc Stress as he states his legs are unable to handle exercise, and test got denied by insurance. He had EGD which was normal in 2015. He walks on a treadmill 1 mile at a time a few days a week and takes at least 20 min without any chest pain. Chest CT with PNA here but this was going on before that, not relieved with antacids. He also reports intermittent heart racing off and on for 15 years that lasts a few minutes, no syncope or related CP. Vitals reviewed NAD, pleasant, NC in place Mild tachycardia, reg rhythm, nl S1S2, no mgr +Crackles and rhonchi in bilateral lower lung mccall and middle lung mccall Abd soft NT nD +BS Ext no edema, 2+ DP pulses SKin no rashes A/P: 71 yo male here with ongoing chronic daily chest pain x 3 months that is atypical, and here with acute multilobar PNA of community acquired type. -continue Levaquin, nebs, add home Asmanex back on -will need f/u CXR or Chest CT in 4-6 weeks to ensure resolution of PNA -continue supplemental O2 and wean as tolerated For Chest pain--> with subtle ST depressions lateral leads, possibly inferior leads, neg trop x 3--> consult Cardiology while here, remains on tele, with sinus tachycardia and started on metoprolol. -may need Dobutamine Stress after recovers from PNA -continue metoprolol started on admission -continue ASA Documented By: Silvia Corbett (Silvia Corbett MD)
[2016-09-08 12:55] LABS: COMPLETE YES; HEMATOCRIT 41.9 % (42-52); IG% 0.2 %; LYMPH % 6.2 %; LYMPH ABS # 0.72 K/uL (1.2-3.4); MEAN CELL VOLUME 85.5 fL (80-100); MEAN CORPUSCULAR HEMOGLOBIN 30.8 pg (25-34); MEAN PLATELET VOLUME 9.6 fL (7.4-10.4); MONO % 0.5 %; NEUT % 93.1 %; PLATELET COUNT 234 K/uL (130-400); WHITE BLOOD COUNT 11.64 K/uL (4.8-10.8)
[2016-09-08 13:28] LABS: BUN/CREATININE RATIO 14.3 (10-20); CALCIUM 9.2 mg/dl (8.5-10.1); CREATININE 1.2 mg/dl (0.60-1.40); MAGNESIUM 2.2 mg/dl (1.8-2.4)
[2016-09-08] MEDS ORDERED: LEVOFLOXACIN / D5W 500 MG in PREMIXED IN D5W 100 ML IV SCH (16:00)
[2016-09-08] MEDS: LEVOFLOXACIN / D5W 750 MG in PREMIXED IN D5W 150 ML IV SCH (16:14)
[2016-09-08] MEDS: MOMETASONE FUROATE 14 PUFF/1 INHALER INH SCH (20:47)
[2016-09-08 21:45] LABS: INFLUENZA A PCR Neg for Influ A (NEG); INFLUENZA B PCR Neg for Influ B (NEG)
[2016-09-09] VITALS (21 sets, daily range): BP systolic 110–171; BP diastolic 66–93; PULSE 63–89; TEMP 36.5–37.2; O2SAT 90–96
[2016-09-09] MEDS: LEVALBUTEROL 1.25MG/0.5ML NEB INH SCH ×4 (02:14→20:09)
[2016-09-09] MEDS: IPRATROPIUM BROMIDE NEB SOLN 0.02% 2.5 ML VIAL INH SCH ×4 (02:14→20:09)
[2016-09-09 06:26] LABS: COMPLETE YES; EOS % 0.1 %; HEMATOCRIT 40.8 % (42-52); IG% 0.2 %; LYMPH ABS # 1.81 K/uL (1.2-3.4); MEAN CELL VOLUME 84.1 fL (80-100); MEAN CORPUSCULAR HEMOGLOBIN 29.7 pg (25-34); MEAN CORPUSCULAR HGB CONC 35.3 g/dl (32-36); MEAN PLATELET VOLUME 9.1 fL (7.4-10.4); MONO % 6.5 %; NEUT % 77.2 %; PLATELET COUNT 246 K/uL (130-400); RED BLOOD COUNT 4.85 M/uL (4.7-6.1)
[2016-09-09] MEDS ORDERED: NITROGLYCERIN OINT 2% 1GM PACKET EXT ONE (06:30)
[2016-09-09] MEDS ORDERED: CALCIUM CARBONATE 500 MG CHEWABLE PO ONE (06:30)
--- NOTE | 2016-09-09 06:40 | Progress Note ---
Progress Note I was paged at approximately 06:00. Patient was noted to be having chest pain. I gave the following instructions prior to my arrival: Obtain EKG, full set of vitals. I arrived at the to the bedside to assess the patient: SUBJECTIVE: - Notes control chest ache slightly to the left of sternum, rated 6/10 has been going on for the last 45 minutes. Started suddenly. He does get this pain at home and takes Tums to help relieve the pain. He has not gotten Tums does be in the hospital. Notes that the nitroglycerin brought the pain down 3/10. He denies shortness of breath, worsening cough, palpitations, lightheadedness, dizziness, lower extremity swelling OBJECTIVE: - Vital signs:Temp 36.7, HR 79, RR 18, BP 146/76, 96% on 3L by nasal cannula - Gen. inspection: Patient appears comfortable, no apparent distress - Cardiac examination: S1 and S2, with no added sounds murmurs or gallops, no lower extremity edema - Respiratory exam: Crackles at the right base, clear otherwise. No wheezing. EKG: Normal sinus rhythm rate 91, no ectopy or pauses, nonspecific T-wave abnormalities (some motion artifact and during adequate view). Compared to reduce EKG done on , with no changes apparent. ASSESSMENT/PLAN: Pleasant 71-year-old male, who presents with sudden onset chest discomfort. Patient already received 0.4 mg sublingual nitrate prior to my arrival, which helped the pain slightly - Start Nitropatch 6 hour application 1 - 1500 mg Tums by mouth now - Cardiac enzymes added on to morning labs; pending - Sign out today team to reassess - If Troponins are positive, consider heparin drip and/or cardiology consultation - if fails to improve also consider possibility of pleurisy secondary to pneumonia or worsening pneumonia and at that time consider repeating a chest x- ray
[2016-09-09 07:17] LABS: BLOOD UREA NITROGEN 22 mg/dl (7-18); CALCIUM 9.1 mg/dl (8.5-10.1); CARBON DIOXIDE 24 mmol/L (21-32); CHLORIDE 105 mmol/L (98-107); GLUCOSE 108 mg/dl (70-99); MAGNESIUM 2.2 mg/dl (1.8-2.4); POTASSIUM 4.1 mmol/L (3.5-5.1); SODIUM 140 mmol/L (136-145)
[2016-09-09 07:22] LABS: CKMB/CK RATIO 2.6 (0-3.0)
[2016-09-09] MEDS: GUAIFENESIN 600 MG TABCR PO SCH ×2 (08:17→20:40)
[2016-09-09] MEDS: PANTOprazole SOD 40 MG TAB PO SCH ×2 (08:18→20:38)
[2016-09-09] MEDS: ASPIRIN 81 MG ECTAB PO SCH (08:18)
[2016-09-09] MEDS: CYANOCOBALAMIN 500 MCG TAB (VIT B-12) PO SCH (08:18)
[2016-09-09] MEDS: METOPROLOL TARTRATE 25 MG TAB PO SCH ×2 (08:19→20:40)
[2016-09-09] MEDS: LISINOPRIL 10 MG TAB PO SCH (08:19)
[2016-09-09] MEDS: DOCUSATE SODIUM 100 MG CAP PO SCH ×2 (08:19→20:40)
[2016-09-09] MEDS: CEROVITE ADV FORMULA TAB PO SCH (08:19)
[2016-09-09] MEDS: CHOLECALCIFEROL 1000 INTER.UNIT TAB PO SCH (08:19)
[2016-09-09] MEDS: ALPRAZOLAM 0.5 MG TAB PO PRN ×3 (08:23→22:33)
[2016-09-09] MEDS: ACETAMINOPHEN 325 MG TAB PO PRN ×3 (08:24→22:34)
[2016-09-09 12:50] LABS: CKMB/CK RATIO 2.7 (0-3.0)
[2016-09-09] MEDS: LEVOFLOXACIN / D5W 750 MG in PREMIXED IN D5W 150 ML IV SCH (15:50)
[2016-09-09] MEDS ORDERED: ALUMINUM/MAGNESIUM/SIMETH (MAALOX MAX) 30 ML UDC ONE (16:31)
[2016-09-09] MEDS ORDERED: SUCRALFATE 1 GM/10 ML UDC PO ONE (18:10)
--- NOTE | 2016-09-09 18:24 | Hospitalist Progress Note ---
Hospitalist Progress Note Date of Service Sep 09, 2016. Subjective Pt evaluation today including: conversation w/ patient, physical exam, chart review, lab review, review of studies, review of inpatient medication list Pt had episode of left sided CP this AM and seen by overnight Resident. Pain was relieved after receiving SLNTG and TUMs so he's not sure which one helped. He does report it was more localized to the left chest unlike the pains he has been getting all across the chest daily for the last few months. He is taking nexium bid at home and here only getting Protonix qAM and Zantac qhs. He reports he has tried Protonix as an outpt and definitely notices his CP worsens compared to when on Nexium. ECG this AM reviewed and still with ST changes lateral leads but trop negative. No more pain all day but had Nitropaste on x 6 hrs and then got Maalox. Cough and breathing significantly improved. Constitutional: No fever Respiratory: + cough Cardiovascular: + chest pain (as per HPI) Skin: No rash Objective Vital Signs Date Time Temp Pulse Resp B/P Pulse Ox O2 Delivery O2 Flow Rate FiO2 09/09/16 16:44 37.2 89 20 152/91 90 Nasal Cannula 2.0 09/09/16 14:16 85 20 92 Nasal Cannula 2.0 09/09/16 12:00 93 Room Air 09/09/16 11:25 36.7 66 18 110/70 91 Nasal Cannula 2.0 09/09/16 08:00 93 Room Air 09/09/16 07:47 36.7 75 18 121/75 93 Room Air 09/09/16 07:45 77 20 92 Nasal Cannula 4.0 09/09/16 06:29 79 132/82 09/09/16 06:11 36.7 79 18 146/76 96 Nasal Cannula 4.0 09/09/16 05:59 87 129/72 09/09/16 05:45 80 147/88 09/09/16 04:16 36.5 79 18 130/77 94 Nasal Cannula 2.0 09/09/16 04:00 Nasal Cannula 2.0 09/09/16 02:14 63 20 95 Nasal Cannula 2.0 09/09/16 00:12 36.7 68 20 110/66 92 Nasal Cannula 2.0 09/09/16 00:00 Nasal Cannula 2.0 09/08/16 20:46 94 115/69 09/08/16 20:39 Nasal Cannula 2.0 09/08/16 20:01 36.7 55 18 145/59 98 Room Air 09/08/16 20:00 36.7 92 20 129/71 92 Nasal Cannula 2.0 09/08/16 19:49 84 20 95 Nasal Cannula 2.0 Physical Exam General Appearance: WD/WN, no apparent distress Eyes: normal inspection, sclerae normal ENT: pharynx normal Neck: trachea midline Respiratory/Chest: no respiratory distress, no accessory muscle use, + crackles (at right base and right middle lung field but clear on left today) Cardiovascular: regular rate, rhythm, no edema, no gallop, no murmur Abdomen: normal bowel sounds, non tender, soft Extremities: non-tender, normal inspection, no pedal edema, no calf tenderness Neurologic/Psychiatric: alert, normal mood/affect, oriented x 3 Skin: normal color, warm/dry, no rash Laboratory Results Last 24 Hours Test 09/08/16 19:25 09/09/16 06:16 09/09/16 12:10 Influenza Type A (RT-PCR) Neg for Influ A Influenza Type B (RT-PCR) Neg for Influ B White Blood Count 11.30 K/uL Red Blood Count 4.85 M/uL Hemoglobin 14.4 g/dL Hematocrit 40.8 % Mean Corpuscular Volume 84.1 fL Mean Corpuscular Hemoglobin 29.7 pg Mean Corpuscular Hemoglobin Concent 35.3 g/dl Platelet Count 246 K/uL Mean Platelet Volume 9.1 fL Neutrophils (%) (Auto) 77.2 % Lymphocytes (%) (Auto) 16.0 % Monocytes (%) (Auto) 6.5 % Eosinophils (%) (Auto) 0.1 % Basophils (%) (Auto) 0.0 % Neutrophils # (Auto) 8.72 K/uL Lymphocytes # (Auto) 1.81 K/uL Monocytes # (Auto) 0.74 K/uL Eosinophils # (Auto) 0.01 K/uL Basophils # (Auto) 0.00 K/uL RDW Standard Deviation 39.7 fL RDW Coefficient of Variation 13.1 % Immature Granulocyte % (Auto) 0.2 % Immature Granulocyte # (Auto) 0.02 K/uL Sodium Level 140 mmol/L Potassium Level 4.1 mmol/L Chloride Level 105 mmol/L Carbon Dioxide Level 24 mmol/L Anion Gap 11.0 mmol/L Blood Urea Nitrogen 22 mg/dl Creatinine 1.00 mg/dl Est Creatinine Clear Calc Drug Dose 69.5 ml/min Estimated GFR () 86.2 Estimated GFR (Non- 74.3 BUN/Creatinine Ratio 22.0 Random Glucose 108 mg/dl Calcium Level 9.1 mg/dl Magnesium Level 2.2 mg/dl Total Creatine Kinase 181 U/L 186 U/L Creatine Kinase MB 4.7 ng/ml 5.0 ng/ml Creatine Kinase MB Ratio 2.7 Troponin I < 0.015 ng/ml < 0.015 ng/ml Assessment and Plan 71 yo male here with ongoing chronic daily chest pain x 3 months that is atypical, and here with acute multilobar PNA of community acquired type. Multilobar CAP, Acute hypoxemic respiratory failure-significantly improved clinically today, still requiring O2 No hx of aspiration or dysphagia per patient Previous admission in 04/[address] Chest then revealed no PNA Hx COPD with no hx of respiratory failure - Follows with Dr. Ritter in pulmonary -continue Levofloxacin 500 mg IV daily x 10 days (can switch to po for discharge ) - follow up with Dr. Ritter on discharge for recurrent pneumonia -continue nebs, Asmanex -check CXR tomorrow -will need f/u CXR or Chest CT in 4-6 weeks to ensure resolution of PNA -continue supplemental O2 and wean as tolerated CHEST PAIN- Patient reports chronic daily chest pain from severe GERD for years but is worsening to daily for the last 3 months. Here with subtle ST depressions lateral leads, possibly inferior leads, neg trop x 4. No arrhythmias on telemetry and CT Chest with no evidence of pulmonary embolism--> remains on tele, with sinus tachycardia and started on metoprolol--> sinus tach improved -may need Dobutamine Stress after recovers from PNA -continue metoprolol started on admission -continue ASA -check ECHO and Consult Cardiology to see if needs ischemic evaluation perhaps as an outpatient given ECG changes COPD Continue Levofloxacin for PNA Started on Methylprednisolone 40mg IV q8h initially but then stopped as did not have wheezing Continue bronchodilators Oxygenation adequate on room air GERD-had normal EGD in 05/2016 but has severe breakthrough symptoms despite bid PPI and qhs 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
[2016-09-09] MEDS ORDERED: CALCIUM CARBONATE 500 MG CHEWABLE PO PRN (20:00)
[2016-09-09] MEDS: SUCRALFATE 1 GM/10 ML UDC PO SCH (20:38)
[2016-09-09] MEDS: MOMETASONE FUROATE 14 PUFF/1 INHALER INH SCH (20:40)
[2016-09-09] MEDS: RANITIDINE HCL 150 MG TAB PO SCH (20:41)
[2016-09-10] VITALS (8 sets, daily range): BP systolic 133–159; BP diastolic 74–95; PULSE 80–114; TEMP 36.8–37; O2SAT 90–95
--- NOTE | 2016-09-10 00:24 | CARDIOLOGY CONSULTATION ---
DATE OF CONSULTATION: 09/09/2016 CONSULTATION REQUESTED BY: Dr. Corbett. REASON FOR CONSULTATION: Chest pain. HISTORY OF PRESENT ILLNESS: Mr. Mckinley is a 71-year-old man without prior cardiac history, who was admitted 2 days ago in the setting of pneumonia and whose hospital course has been complicated by recurrent episodes of chest pain. Cardiology consulted for further management. The patient denies any history of prior cardiac surgery, catheterizations or stents. States he had a stress test in the remote past but otherwise has no relevant cardiac history. Two days prior to admission, the patient notes that he became acutely short of breath. This was not associated with any fevers, chills or productive cough. Shortness of breath persisted and presented to the Emergency Department where he was initially hypoxic on room air with O2 sats down to low to mid 80s. He was placed on 5-6 liters with improvement in oxygenation. Had a CT scan of his chest which was negative for PE but did show findings concerning for lower lobe pneumonia. He was started on IV antibiotics and admitted to telemetry. Since he has been admitted, he has had recurrent episodes of chest pain, most notably the morning of the day of consultation. The patient states he was at rest and had pain that radiated up into his neck and was associated with mild numbness and tingling into his arms. Of note, the patient states that he gets frequent chest pain while at home, which he has attributed to GERD. This often resolves with Tums. However, he states this pain felt somewhat different. He also notes through the day that he has had no recurrent chest pain but has had intermittent brief episodes of feeling hot. His episode of chest pain this morning lasted for approximately 2 hours. He has had multiple EKGs checked over the course of his hospitalization, which have all showed normal sinus rhythm with nonspecific ST changes most notable in the inferolateral leads. He has had troponin checked x4 which was negative and a proBNP which was also negative. At time of presentation, the patient states he feels well and denies any significant chest pain at present. PAST MEDICAL HISTORY: 1. Hypertension. 2. COPD. 3. Prior pneumonia. PAST SURGICAL HISTORY: Prior hernia repair. FAMILY HISTORY: Father had an SC in his 60s and from congestive heart failure in 80s. SOCIAL HISTORY: He is a former smoker, he quit a year and a half ago, previously smoked for 50 years. Alcohol use, quit drinking alcohol 16 years ago, denies any alcohol use now. Denies any illicit drug use. He is , has 3 children. He is retired, previously was a ramos. ALLERGIES: ALLERGIC TO PENICILLINS. HOME MEDICATIONS: Aspirin 81, vitamin D, vitamin B12, Nexium, guaifenesin, lisinopril 10 mg, Asmanex inhaler, multivitamin, nifedipine, ranitidine. REVIEW OF SYSTEMS: Ten-point review of systems completed and otherwise negative other than stated in HPI. PHYSICAL EXAMINATION: VITAL SIGNS: Temperature 37.2, pulse 89, respiratory rate 20, blood pressure 152/91, he is satting 90% on 2 liters. GENERAL: The patient appears comfortable, in no acute distress, jovial. HEENT: Sclerae are anicteric. Oropharynx is clear. Mucous membranes are moist. NECK: Supple with no lymphadenopathy. LUNGS: Clear to auscultation bilaterally. CARDIAC: He has a regular rate and rhythm with no murmurs, rubs or gallops. ABDOMEN: Soft, nontender, nondistended, with positive bowel sounds. EXTREMITIES: Warm. He has intact distal pulses and no significant lower extremity edema. SKIN: Shows no rashes or lesions. NEUROLOGIC: Grossly nonfocal. PSYCHIATRIC: He is alert and oriented x3. His mood and affect are appropriate. DATA: Sodium 140, potassium 4.1, BUN 22, creatinine 1.0. Troponins less than 0.015 x4. INR 1.0. White blood cell count 11.3, hemoglobin 14.4, platelets of 246. Blood cultures and sputum cultures have been no growth to date. Chest CTA on admission showed no pulmonary emboli, multifocal consolidation, most evidenced in bilateral lower lobes consistent with multifocal pneumonia and moderate emphysema. Chest x-ray showed bilateral interstitial thickening and hazy opacities, thought to be developing pneumonia. EKGs most recently showed sinus rhythm with nonspecific ST-T wave abnormality, most notably in the lateral leads. Telemetry reviewed, no significant arrhythmias. IMPRESSION AND PLAN: 1. Atypical chest pain. 2. Pneumonia. 3. Hypertension. 4. Subtle EKG changes. The patient admitted with worsening shortness of breath in the setting of pneumonia. He has had intermittent atypical chest pain since that time. Current pain different than prior pain he has had with his GERD. Pain occurred in the setting of mild ST changes on EKG. Cardiac enzymes have been completely negative x4. At this time, suspicion that chest pain is secondary to acute coronary syndrome is low; however, with the patient's risk factors and subtle EKG findings, I do feel that further risk stratification is warranted. Agree with obtaining a transthoracic echocardiogram which we will review when completed. Assuming no significant wall motion abnormalities, I feel that stress testing is appropriate, which could be completed as an outpatient when acute illness is resolved. In the interim, would continue to treat the patient's high blood pressure and continue on aspirin with consideration for addition of a statin. We will continue to follow while in hospital. Thank you for allowing us to participate in the care of this patient. Please contact with any questions.
[2016-09-10] MEDS: LEVALBUTEROL 1.25MG/0.5ML NEB INH SCH ×4 (03:49→19:01)
[2016-09-10] MEDS: IPRATROPIUM BROMIDE NEB SOLN 0.02% 2.5 ML VIAL INH SCH ×4 (03:49→19:01)
[2016-09-10] MEDS: ACETAMINOPHEN 325 MG TAB PO PRN ×2 (06:29→12:30)
[2016-09-10 06:42] LABS: BASO % 0.1 %; BASO ABS # 0.01 K/uL (0-0.2); COMPLETE YES; EOS % 0.6 %; IG% 0.2 %; LYMPH ABS # 1.62 K/uL (1.2-3.4); MEAN CELL VOLUME 87.1 fL (80-100); MEAN CORPUSCULAR HEMOGLOBIN 30.7 pg (25-34); MEAN CORPUSCULAR HGB CONC 35.2 g/dl (32-36); MEAN PLATELET VOLUME 9.6 fL (7.4-10.4); MONO % 8.7 %; NEUT % 75.4 %; PLATELET COUNT 251 K/uL (130-400); RED BLOOD COUNT 5.05 M/uL (4.7-6.1); WHITE BLOOD COUNT 10.81 K/uL (4.8-10.8)
[2016-09-10 07:11] LABS: MAGNESIUM 2.2 mg/dl (1.8-2.4); POTASSIUM 4.1 mmol/L (3.5-5.1)
[2016-09-10] MEDS: ALPRAZOLAM 0.5 MG TAB PO PRN ×2 (08:00→15:31)
[2016-09-10] MEDS: SUCRALFATE 1 GM/10 ML UDC PO SCH ×4 (08:26→19:11)
[2016-09-10] MEDS: ASPIRIN 81 MG ECTAB PO SCH (08:26)
[2016-09-10] MEDS: DOCUSATE SODIUM 100 MG CAP PO SCH (08:26)
[2016-09-10] MEDS: CYANOCOBALAMIN 500 MCG TAB (VIT B-12) PO SCH (08:26)
[2016-09-10] MEDS: GUAIFENESIN 600 MG TABCR PO SCH (08:27)
[2016-09-10] MEDS: METOPROLOL TARTRATE 25 MG TAB PO SCH ×2 (08:27→19:11)
[2016-09-10] MEDS: PANTOprazole SOD 40 MG TAB PO SCH ×2 (08:27→19:11)
[2016-09-10] MEDS: CEROVITE ADV FORMULA TAB PO SCH (08:27)
[2016-09-10] MEDS: CHOLECALCIFEROL 1000 INTER.UNIT TAB PO SCH (08:28)
[2016-09-10] MEDS: LISINOPRIL 10 MG TAB PO SCH (08:28)
--- NOTE | 2016-09-10 08:47 | DIAGNOSTIC IMAGING REPORT ---
TWO VIEW CHEST CLINICAL HISTORY: Pneumonia. FINDINGS: PA and lateral chest radiographs are compared to chest x-ray and chest CT dated 09/07/2016. The heart is top normal for projection. There is atherosclerotic calcification of the thoracic aorta. The pulmonary vasculature is noncongested. Emphysema and chronic interstitial thickening are again noted. Bibasilar airspace opacities are again noted. This is modestly cleared the right lung base as compared to 09/07/2016. The upper lobes appear clear. No pleural effusion is identified. There is no pneumothorax. The skeletal structures are osteopenic. The bony thorax appears intact. IMPRESSION: 1. Bibasilar airspace consolidation is again noted. This has modestly cleared at the right lung base as compared to 09/07/2016. 2. Emphysema. Electronically signed by: Galindo Rush M.D. 09/10/2016 8:46 AM Dictated Date/Time: 09/10/2016 8:44 AM
[2016-09-10] MEDS ORDERED: LPR25 PO (11:27)
[2016-09-10] MEDS ORDERED: TUMS PO (11:27)
[2016-09-10] MEDS ORDERED: PRVHFAIN INH (11:27)
[2016-09-10] MEDS ORDERED: LEVO1TAB35 PO (11:27)
[2016-09-10] MEDS ORDERED: CRFUDL PO ×2 (11:27→11:28)
[2016-09-10] MEDS ORDERED: NIFEdipine 30 MG CR TAB PO STA (13:50)
[2016-09-10] MEDS ORDERED: LEVOFLOXACIN 750 MG TAB PO SCH (16:00)
[2016-09-10] MEDS ORDERED: NURSING VERBAL MED ORDER ONE (16:00)
--- NOTE | 2016-09-10 18:56 | ECHOCARDIOGRAM REPORT ---
*NOTICE TO RECEIVING [employer] This information is strictly Confidential and protected under [place] law. [place] law prohibits you from making any further disclosure of this information unless further disclosure is expressly permitted by the written consent of the person to whom it pertains or is authorized by law. A general authorization for the release of medical or other information is not sufficient for this purpose. Hospital accepts no responsibility if the information is made available to any other person, INCLUDING THE PATIENT. Interpretation Summary * Name: DAVINA RAMOS Study Date: 09/10/2016 07:29 AM BP: 133/74 mmHg * Patient Location: [facility]\S\N282\S\1 HR: 94 * : 1945 (M/d/yyyy) Gender: Male Height: 65 in * Age: 71 yrs Ethnicity: [place] Weight: 208 lb * Ordering Physician: Silvia Corbett * Referring Physician: Self, Referred * Performed By: Herman Alston RCS * * Reason For Study: Chest Pain * BSA: 2.0 m2 * -- Conclusions -- * 1. Normal LV size. Normal LV wall thickness. * 2. Normal LV systolic function. LVEF 65-70 %. No regional wall motion abnormalities. * 3. Normal RV size and function. * 4. No significant valvular pathology. * 5. Grade 1 diastolic dysfunction * 6. Compared with prior study on 09/06/2015: No significant change Procedure Details * A complete two-dimensional transthoracic echocardiogram was performed (2D, M-mode, Doppler and color flow Doppler). Left Ventricle * The left ventricle is grossly normal size. * There is normal left ventricular wall thickness. * Ejection Fraction = 65-70%. * No regional wall motion abnormalities noted. Right Ventricle * The right ventricle is grossly normal size. * The right ventricular systolic function is normal as assessed by tricuspid annular plane systolic excursion (TAPSE) (normal >1.5 cm). Atria * Borderline left atrial enlargement. * Right atrial size is normal. * No ASD detected; PFO is not assessed. Mitral Valve * The mitral valve is grossly normal. * There is no mitral valve stenosis. * Significant mitral regurgitation is absent. Tricuspid Valve * The tricuspid valve is not well visualized, but is grossly normal. * There is no tricuspid stenosis. * Significant tricuspid regurgitation is absent. Aortic Valve * The aortic valve opens well. * The aortic valve is trileaflet. * No hemodynamically significant valvular aortic stenosis. * There is no significant aortic regurgitation. Pulmonic Valve * The pulmonary valve is inadequately visualized, but the Doppler data is adequate for interpretation. * There is no pulmonic valvular stenosis. * There is no significant pulmonary regurgitation. Great Vessels * The aortic root and proximal ascending aorta are normal sized. Pericardium/Pleural * There is no pericardial effusion. Great Vessels * Normal inferior vena cava size and collapsability with sniff indicates a normal right atrial pressure of 3 mmHg MMode 2D Measurements and Calculations IVSd 1.1 cm IVSs 1.3 cm LVIDd 4.7 cm LVIDs 3.1 cm LVPWd 1.1 cm LVPWs 1.3 cm IVS/LVPW 0.96 FS 34.4 % EDV(Teich) 100.4 ml ESV(Teich) 36.6 ml EF(Teich) 63.5 % EDV(cubed) 101.3 ml ESV(cubed) 28.6 ml EF(cubed) 71.8 % % IVS thick 19.9 % % LVPW thick 20.9 % LV mass(C)d 181.1 grams LV mass(C)dI 90.0 grams/m\S\2 LV mass(C)s 128.0 grams LV mass(C)sI 63.7 grams/m\S\2 CO(Teich) 5.0 l/min CI(Teich) 2.5 l/min/m\S\2 SV(Teich) 63.8 ml SI(Teich) 31.7 ml/m\S\2 CO(cubed) 5.7 l/min CI(cubed) 2.8 l/min/m\S\2 SV(cubed) 72.7 ml SI(cubed) 36.2 ml/m\S\2 Ao root diam 3.7 cm Ao root area 10.9 cm\S\2 ACS 1.7 cm LA dimension 3.6 cm LA/Ao 0.97 LVAd ap4 24.1 cm\S\2 LVLd ap4 7.2 cm EDV(MOD-sp4) 67.0 ml LVAs ap4 13.2 cm\S\2 LVLs ap4 6.4 cm ESV(MOD-sp4) 23.0 ml EF(MOD-sp4) 65.7 % LVAd ap2 25.3 cm\S\2 LVLd ap2 7.9 cm EDV(MOD-sp2) 68.0 ml LVAs ap2 12.2 cm\S\2 LVLs ap2 6.4 cm ESV(MOD-sp2) 19.0 ml EF(MOD-sp2) 72.1 % CO(MOD-sp4) 3.4 l/min CI(MOD-sp4) 1.7 l/min/m\S\2 SV(MOD-sp4) 44.0 ml SI(MOD-sp4) 21.9 ml/m\S\2 CO(MOD-sp2) 3.8 l/min CI(MOD-sp2) 1.9 l/min/m\S\2 SV(MOD-sp2) 49.0 ml SI(MOD-sp2) 24.4 ml/m\S\2 Doppler Measurements and Calculations MV E max martin 65.2 cm/sec MV A max martin 96.3 cm/sec MV E/A 0.68 MV P1/2t max martin 74.4 cm/sec MV P1/2t 58.0 msec MVA(P1/2t) 3.8 cm\S\2 MV dec slope 375.7 cm/sec\S\2 MV dec time 0.24 sec Ao V2 max 137.9 cm/sec Ao max PG 7.6 mmHg Ao max PG (full) 3.3 mmHg LV V1 max PG 4.3 mmHg LV V1 max 104.1 cm/sec PA V2 max 130.5 cm/sec PA max PG 6.8 mmHg
--- NOTE | 2016-09-10 19:04 | Discharge Instructions ---
Discharge Instructions Admission Reason for Admission: Pneumonia, Acute hypoxemic respiratory failure, Chest pain Discharge Discharge Diagnosis / Problem: Pneumonia, Chest pain Discharge Goals Goal(s): Improve disease control, Therapeutic intervention Activity Recommendations Activity Limitations: resume your previous activity Lifting Limitations: none Exercise/Sports Limitations: as tolerated Shower/Bathe: no limitations . Instructions / Follow-Up Instructions / Follow-Up You were admitted for pneumonia and required oxygen for 2 days which was then weaned off. You were treated with antibiotics and should finish out a course of this after discharge. You will need follow up with your PCP and your Door Closer Mechanic and a repeat chest xray in 3-4 weeks to ensure the pneumonia is completely resolved. As for your chest pain, you had normal bloodwork and did not have a heart attack. You did have some mild abnormalities on your ECGs and were seen by the Credit Card Analyst. Your ECHO (ultrasound of the heart) was read as normal by the Credit Card Analyst. However, he would like to schedule you for a stress test as an outpatient. His office will contact you to arrange this appointment. Your heart rate was elevated and you were started on a new medication called metoprolol. Your chest pain may be related to acid reflux and sucralfate was added on to your regimen for this. Current Hospital Diet Patient's current hospital diet: AHA Diet (Heart Healthy) Discharge Diet Recommended Diet: AHA Diet (Heart Healthy) Procedures Procedures Performed: ECHO CT Angiogram Chest Chest xrays Pending Studies Studies pending at discharge: yes List of pending studies: Final Blood cultures Medical Emergencies . Who to Call and When: Medical Emergencies: If at any time you feel your situation is an emergency, please call 911 immediately. . Non-Emergent Contact Non-Emergency issues call your: Primary Care Provider, Credit Card Analyst Call Non-Emergent contact if: you have a fever, your pain is not controlled, your pain is worsening, your pain is unusual for you, your pain is concerning you, you have any medication questions . . "Provider Documentation" section prepared by Silvia Corbett. VTE Core Measure Inpt VTE Proph given/why not?: SCD's
[2016-09-10] MEDS: RANITIDINE HCL 150 MG TAB PO SCH (19:11)
--- NOTE | 2016-09-10 20:47 | Discharge Summary ---
Discharge Summary Admission Date: Sep 07, 2016 at 20:26 Discharge Date: Sep 10, 2016 Discharge Disposition: Home Principal Diagnosis: CAP, Chest pain, Acute hypoxemic respiratory failure Problems/Secondary Diagnoses: Chronic daily chest pain -atypical Multilobar CAP Acute hypoxemic respiratory failure COPD Stable pulmonary nodules GERD Sinus tachycardia HTN Procedures: CT ANGIOGRAPHY OF THE CHEST, PULMONARY EMBOLUS PROTOCOL CLINICAL HISTORY: Chest pain. Difficulty breathing. COMPARISON STUDY: Chest CT May 20, 2016 and chest radiograph September 07, 2016. TECHNIQUE: Following IV administration of 107 mL of Optiray-320, helical axial images of the chest were obtained utilizing the pulmonary embolus protocol. Maximal intensity projections and sagittal and coronal reformats were viewed on an independent 3D workstation. IV contrast was administered without complication. CT DOSE: 494.70 mGy.cm FINDINGS: No pulmonary emboli are identified. Mild cardiomegaly is noted. Several mildly enlarged bilateral hilar lymph nodes are unchanged since CT of February 28, 2014. Calcified subcarinal lymph node is present. There is no pericardial effusion. Central airways are patent. There is moderate emphysema. Several pulmonary nodules are unchanged since CT of February 28, 2014. Therefore, these are benign. There has been interval development of bilateral lower lobe consolidation, left greater the right. There is also lingular and right middle lobe airspace opacity as well as ill-defined subpleural opacity within the right upper lobe which favors an infectious process. There is no pneumothorax or pleural effusion. Bony thorax and upper abdomen are unremarkable. IMPRESSION: 1. No pulmonary emboli identified. 2. Multifocal consolidation, most evident within the bilateral lower lobes. The findings favor multifocal pneumonia. The distribution raises the possibility of aspiration. A follow-up chest CT in 3 months to ensure resolution is recommended. 3. Moderate emphysema. 4. No change in mild bilateral hilar lymphadenopathy since CT of February 28, 2014. CHEST ONE VIEW PORTABLE HISTORY: Progressive. Atypical CHEST PAIN COMPARISON: Chest 05/19/2016. FINDINGS: No pneumothorax. The upper lung zones are clear. The heart is stable in size. Bibasilar interstitial thickening and hazy opacities have progressed. No pleural effusions. Emphysema. IMPRESSION: Bibasilar interstitial thickening and hazy opacities have progressed. This may represent a developing pneumonia. TWO VIEW CHEST CLINICAL HISTORY: Pneumonia. FINDINGS: PA and lateral chest radiographs are compared to chest x-ray and chest CT dated 09/07/2016. The heart is top normal for projection. There is atherosclerotic calcification of the thoracic aorta. The pulmonary vasculature is noncongested. Emphysema and chronic interstitial thickening are again noted. Bibasilar airspace opacities are again noted. This is modestly cleared the right lung base as compared to 09/07/2016. The upper lobes appear clear. No pleural effusion is identified. There is no pneumothorax. The skeletal structures are osteopenic. The bony thorax appears intact. IMPRESSION: 1. Bibasilar airspace consolidation is again noted. This has modestly cleared at the right lung base as compared to 09/07/2016. 2. Emphysema. ECHO: * 1. Normal LV size. Normal LV wall thickness. * 2. Normal LV systolic function. LVEF 65-70 %. No regional wall motion abnormalities. * 3. Normal RV size and function. * 4. No significant valvular pathology. * 5. Grade 1 diastolic dysfunction * 6. Compared with prior study on 09/06/2015: No significant change Consultations: Cardiology Medication Reconciliation New Medications: Albuterol (Ventolin Hfa) 60 Puffs/5400 Mcg Aers 2 PUFF INH Q4 PRN for SOB/Wheezing, #1 INHALER 0 Refills Levofloxacin (Levaquin) 750 Mg Tab 750 MG PO DAILY, #7 TAB Calcium Carbonate (Tums) 500 Mg Chew 1500 MG PO PRN PRN for Heartburn for 30 Days Metoprolol Tartrate (Lopressor) 25 Mg Tab 25 MG PO BID, #60 TAB Sucralfate (Sucralfate) 1 Gm/10 Ml Susp 1 GM PO QID for 14 Days, #560 ML Continued Medications: Alprazolam (Xanax) 1 Mg Tab 0.5-1 MG PO TID PRN for Anxiety Aspirin (Aspirin Ec) 81 Mg Tab 81 MG PO DAILY Cholecalciferol (Vitamin D) 5,000 Unit Tab 5000 INTER.UNIT PO QPM Cyanocobalamin (Vitamin B12) 1,000 Mcg Tab 1000 MCG PO DAILY Esomeprazole Magnesium (Esomeprazole Magnesium) 20 Mg Cap 20 MG PO BID, #30 Guaifenesin Ext Rel (Mucinex Ext Rel) 600 Mg Tabcr 600 MG PO BID for 15 Days Ibuprofen (Ibuprofen) 200 Mg Tab 400 MG PO TID PRN for Pain for 30 Days, #180 TAB Lisinopril (Lisinopril) 10 Mg Tab 10 MG PO QAM, #90 Mometasone Furoate (Asmanex Twisthaler 60 Met) 220 Mcg/Inh Aer 1 PUFF INH BID Multiple Vitamins W/ Minerals (Centrum Silver Adult 50+) 1 Tab Tab 1 TAB PO DAILY Nifedipine Ext Rel (Procardia Xl Ext Rel) 30 Mg Tabcr 30 MG PO DAILY, TAB Ranitidine (Zantac) 150 Mg Tab 150 MG PO HS, TAB Referrals At Discharge Follow up Referrals: Car Unloader Referral - Within 1-2 Weeks with Lj Swenson MD Physician Referral - Within 1 Week with Karrie Hernandez M.D. Chair Springer Referral - Within 2 Weeks with Juan Pablo Ritter D.O. Pulmonary Discharge Exam Doing well, had chest pain again last night with unchanged ECG, atypical, relieved with TUMs. Cough much improved. Had no desaturation with ambulation on testing today, no longer requiring O2. Review of Systems: Constitutional: No fever Eyes: No problem reported ENT: No problem reported Respiratory: + cough, No dyspnea on exertion, No shortness of breath Cardiovascular: + chest pain, No palpitations Abdomen: No pain Musculoskeletal: No problem reported Genitourinary - Male: No problem reported Neurologic: No problem reported Psychiatric: No problem reported Endocrine: No problem reported Hematologic / Lymphatic: No problem reported Integumentary: No problem reported Physical Exam: General Appearance: WD/WN, no apparent distress Eyes: normal inspection, sclerae normal ENT: hearing grossly normal Neck: trachea midline Respiratory/Chest: no respiratory distress, no accessory muscle use, + crackles (at bases bilat but much improved, no wheezes or rhonchi) Cardiovascular: regular rate, rhythm, no edema, no gallop, no murmur, normal peripheral pulses Abdomen / GI: normal bowel sounds, non tender, soft, no organomegaly Extremities: normal inspection, no calf tenderness, normal range of motion Neurologic/Psychiatric: alert, normal mood/affect, oriented x 3 Skin: normal color, warm/dry, no rash Hospital Course 71 yo male here with ongoing chronic daily chest pain x 3 months that is atypical, and here with acute multilobar PNA of community acquired type. Multilobar CAP, Acute hypoxemic respiratory failure-significantly improved clinically today, no longer requiring O2 No hx of aspiration or dysphagia per patient Previous admission in 04/[address] Chest then revealed no PNA Hx COPD with no hx of respiratory failure - Follows with Dr. Ritter in pulmonary Repeat CXR day of discharge showing clearing of PNA. -continue Levofloxacin 750 mg po daily to finish out 10 day course after discharge - follow up with Dr. Ritter on discharge for recurrent pneumonia -continue nebs, Asmanex -will need f/u CXR or Chest CT in 4-6 weeks to ensure resolution of PNA CHEST PAIN- Patient reports chronic daily chest pain from severe GERD for years but is worsening to daily for the last 3 months. Here with subtle ST depressions lateral leads, possibly inferior leads, neg trop x 4. No arrhythmias on telemetry and CT Chest with no evidence of pulmonary embolism--> on tele, with sinus tachycardia and started on metoprolol--> sinus tach improved. ECHO with normal EF and no wall motion abnormalities, with grade 1 diastolic dysfunction. 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 Discharge Instructions Please refer to the electronic Patient Visit Report (Discharge Instructions) for additional information. Follow-Up With PCP within 1 week With Pulm within 2 weeks With Cardiology for stress test--> they will contact for appt. Additional Copies To Karrie Hernandez M.D.; Juan Pablo Ritter D.O. Pulmonary; Lj Swenson MD
== END 2016-09-10 19:30 | disposition home or self-care (01) | DRG 190 ==
LOC: ENRESERVDT → ENRESERVTM → C.EDB 15:29 → C.EDINP 20:26 → C.MED 09-08 09:29
PROVIDERS: ADMIT Hospitalist; ATTEND Family Medicine
DX: J44.0 Chronic obstructive pulmonary disease with (acute) lower respiratory infection (principal); J18.9 Pneumonia, unspecified organism; J96.01 Acute respiratory failure with hypoxia; I10 Essential (primary) hypertension; R93.1 Abnormal findings on diagnostic imaging of heart and coronary circulation; E53.8 Deficiency of other specified B group vitamins; K21.9 Gastro-esophageal reflux disease without esophagitis; Z79.82 Long term (current) use of aspirin; Z79.899 Other long term (current) drug therapy; Z87.891 Personal history of nicotine dependence

== ENCOUNTER → 2016-10-07 | Outpatient (CLI) | payer OTHER ==
[~2016-10-07] MED LIST changes: +CRFUDL PO; +ESOM45CA PO; +LEVO1TAB35 PO; +LISI-461 PO; +LPR25 PO; -LSN5 PO; +OMEP40CA41 PO; -PRT40 PO; +PRVHFAIN INH; +TUMS PO; +ZNTT/150 PO
--- NOTE | 2016-10-07 10:55 | DIAGNOSTIC IMAGING REPORT ---
CHEST 2 VIEWS ROUTINE CLINICAL HISTORY: Pneumonia dyspnea COMPARISON STUDY: 09/10/2016 FINDINGS: Improving left basilar infiltrate. Minimal focal residual improving parenchymal infiltrate medial right base The upper lungs are considered clear. No evidence for cardiac enlargement. IMPRESSION: Improving basilar infiltrates with minimal residual Electronically signed by: Figueroa Bullard M.D. 10/07/2016 10:53 AM Dictated Date/Time: 10/07/2016 10:53 AM
== END | disposition home or self-care (01) ==
LOC: C.RADPV 10:19
PROVIDERS: ATTEND Family Medicine
DX: J18.9 Pneumonia, unspecified organism (principal)

== ENCOUNTER → 2016-11-19 | Outpatient (CLI) | payer OTHER ==
[2016-11-19 12:48] LABS: ALT/SGPT 31 U/L (12-78); AST/SGOT 14 U/L (15-37); BLOOD UREA NITROGEN 15 mg/dl (7-18); BUN/CREATININE RATIO 17.6 (10-20); CARBON DIOXIDE 30 mmol/L (21-32); CHLORIDE 104 mmol/L (98-107); CREATININE 0.86 mg/dl (0.60-1.40); GLUCOSE 92 mg/dl (70-99); MAGNESIUM 2.2 mg/dl (1.8-2.4); POTASSIUM 4.5 mmol/L (3.5-5.1); SODIUM 138 mmol/L (136-145)
[2016-11-19 12:51] LABS: ALKALINE PHOSPHATASE 82 U/L (45-117); CHOLESTEROL 144 mg/dl (0-200); CHOLESTEROL/HDL RATIO 3.6; HDL CHOLESTEROL 40 mg/dl; LDL CHOLESTEROL CALCULATED 63 mg/dl; TRIGLYCERIDES 204 mg/dl (0-150); VERY LOW DENSITY LIPOPROT CALC 41 mg/dl
== END | disposition home or self-care (01) ==
LOC: C.LABPVFM 08:00
PROVIDERS: ATTEND Family Medicine
DX: F41.9 Anxiety disorder, unspecified (principal); I10 Essential (primary) hypertension; K21.9 Gastro-esophageal reflux disease without esophagitis; E78.5 Hyperlipidemia, unspecified; E55.9 Vitamin D deficiency, unspecified; Z12.5 Encounter for screening for malignant neoplasm of prostate

== ENCOUNTER → 2017-01-12 | Outpatient (CLI) | payer OTHER ==
--- NOTE | 2017-01-12 12:10 | DIAGNOSTIC IMAGING REPORT ---
CHEST 2 VIEWS ROUTINE CLINICAL HISTORY: COUGH PERSIST ANT dyspnea COMPARISON STUDY: 10/07/2016 FINDINGS: Mild cardiomegaly. Chronic interstitial change throughout both hemithoraces. Small parenchymal infiltrate medial aspect left lower lobe. IMPRESSION: Small parenchymal infiltrate medial aspect left lower lobe. Chronic interstitial prominence throughout both hemithoraces. Electronically signed by: Figueroa Bullard M.D. 01/12/2017 12:09 PM Dictated Date/Time: 01/12/2017 12:08 PM
== END | disposition home or self-care (01) ==
LOC: C.RADPV 11:58
PROVIDERS: ATTEND Family Medicine
DX: R05 Cough (principal)

== ENCOUNTER → 2017-01-20 | Outpatient (CLI) | payer OTHER ==
[~2017-01-20] MED LIST changes: -OMEP40CA41 PO
== END | disposition home or self-care (01) ==
LOC: C.LABPVFM 08:12
PROVIDERS: ATTEND Internal Medicine Endocrinology, Diabetes & Metabolism
DX: E22.1 Hyperprolactinemia (principal)

== ENCOUNTER → 2017-03-02 | Outpatient (CLI) | payer OTHER ==
[~2017-03-02] MED LIST changes: +OMEP40CA41 PO
[2017-03-02 12:46] LABS: BLOOD UREA NITROGEN 15 mg/dl (7-18); BUN/CREATININE RATIO 16.8 (10-20); CREATININE 0.91 mg/dl (0.60-1.40)
== END | disposition home or self-care (01) ==
LOC: C.LABPVFM 08:03
PROVIDERS: ATTEND Internal Medicine Pulmonary Disease
DX: R91.8 Other nonspecific abnormal finding of lung field (principal); J44.9 Chronic obstructive pulmonary disease, unspecified

== ENCOUNTER → 2017-03-08 | Outpatient (CLI) | payer OTHER ==
[~2017-03-08] MED LIST changes: +OPTIRAY 320 IV PRN
--- NOTE | 2017-03-08 09:21 | DIAGNOSTIC IMAGING REPORT ---
(CHEST) THORAX WITH CLINICAL HISTORY: 72 years-old Male presenting with R93.[address] TECHNIQUE: Multidetector CT imaging of the chest was performed after the administration of intravenous contrast. IV contrast: 87 mL of Optiray 320. A dose lowering technique was used consistent with the principles of ALARA (as low as reasonably achievable). COMPARISON: 09/07/2016. CT DOSE (mGy.cm): The estimated cumulative dose is 630.87 mGycm. FINDINGS: Cloth Handler topogram: Unremarkable. On soft tissue windows, normal thyroid and thoracic inlet. Multiple calcified right hilar lymph nodes noted likely indicating prior granulomatous infection. No lymphadenopathy. Mild atherosclerosis of aortic arch and origin of the left subclavian artery. Three-vessel arch configuration. Normal heart size. No pericardial or pleural effusion. Nonspecific perinephric fluid noted, right greater than left, at the upper poles. Upper abdomen otherwise normal. On lung windows, significant interval clearance of previously demonstrated solid and groundglass nodular dependent opacities in the bilateral lower lobes. Minimal groundglass dependent opacities remain. Calcified granuloma noted in the right lower lobe. Apical predominant moderate emphysema. Multiple solid pulmonary nodules bilaterally measuring up to 7 mm on the right (series 4 image 100) and 7 mm on the left (series 4 image 58). The remaining nodules have been marked on images. These are not significantly changed since the prior exam. Debris noted in the upper trachea and left mainstem bronchus. Mild bronchial wall thickening. On bone windows, degenerative changes of the spine. IMPRESSION: 1. Significant interval clearance of previous dependent consolidation. Minimal groundglass dependent opacities remain, possibly atelectasis. 2. Minimal debris in the airways could suggest aspiration. 3. Multiple bilateral solid pulmonary nodules measuring up to 7 mm. These are not significantly changed since the prior exam. Follow-up per Fleischner Society 2017 recommendations below. Please refer to below summary of Fleischner Society 2017 recommendations for follow-up of incidental CT nodules (H Abby et al. Guidelines for management of incidental pulmonary nodules detected on CT images: From the Fleischner Society 2017. Radiology 2017; 284: 228-243.) SOLID NODULES Single nodule; size <6 mm * Low risk patients: No routine follow-up * High risk patients: Optional CT at 12 months Single nodule; size 6-8 mm * Low risk patients: CT at 6-12 months, then consider CT at 18-24 months * High risk patients: CT at 6-12 months, then at 18-24 months Single nodule; size >8 mm * Either low or high risk patients: Considered CT at 3 months, PET/CT, or tissue sampling Multiple nodules; size <6 mm * Low risk patients: No routine follow up * High risk patients: Optional CT at 12 months Multiple nodules; size 6-8 mm * Low risk patients: CT at 3-6 months, then consider CT at 18-24 months * High risk patients: CT at 3-6 months, then at 18-24 months Multiple nodules; size >8 mm * Low risk patients: CT at 3-6 months, then consider at 18-24 months * High risk patients: CT at 3-6 months, then at 18-24 months Note: These guidelines apply to incidental nodules. These guidelines did not apply to patients younger than 35 years, immunocompromised patients, or patients with cancer. * Low risk patients: Minimal or absent history of smoking and/or other known risk factors * High risk patients: History of smoking, exposure to other carcinogens, emphysema, fibrosis, upper lobe location, family history of lung cancer, etc. * If a nodule up to 8 mm is partly solid or is ground glass further follow-up is required after 24 months to exclude possible slow growing adenocarcinoma SUBSOLID NODULES Single ground-glass nodule * Nodule size < 6 mm: No routine follow-up * Nodule size > or = 6 mm: CT at 6-12 months to confirm persistence, then CT every 2 years until 5 years Single part-solid nodule * Nodule size < 6 mm: No routine follow-up * Nodules size > or = 6 mm: CT at 3-6 months to confirm persistence. If unchanged and solid component remains < 6 mm, annual CT should be performed for 5 years Multiple nodules * Nodule size < 6 mm: CT at 3-6 months. If stable, consider CT at 2 and 4 years. * Nodules size > or = 6 mm: CT at 3-6 months. Subsequent management based on the most suspicious nodule(s) Electronically signed by: Power Simmons M.D. 03/08/2017 9:20 AM Dictated Date/Time: 03/08/2017 9:07 AM
== END | disposition home or self-care (01) ==
LOC: C.CTS 08:42
PROVIDERS: ATTEND Internal Medicine Pulmonary Disease
DX: R91.8 Other nonspecific abnormal finding of lung field (principal)

== ENCOUNTER 2017-04-17 16:02 | Emergency (ER) | payer OTHER ==
[~2017-04-17] VITALS: Ht 170.2 cm; Wt 93.0 kg
[2017-04-17 16:02] VITALS: TEMP 36.6; O2SAT 96; Ht 170.2 cm; Wt 93.0 kg
[~2017-04-17 16:02] MED LIST changes: -LEVO1TAB35 PO; -OMEP40CA41 PO; -OPTIRAY 320 IV PRN
--- NOTE | 2017-04-17 16:16 | EMERGENCY ROOM VISIT NOTE ---
History Report prepared by Genoveva: Mary Avelar Under the Supervision of: Maura GarayO. First contact with patient: 16:04 Chief Complaint: CHEST PAIN Stated Complaint: CHEST PAIN History of Present Illness The patient is a 72 year old male who presents to the Emergency Room with complaints of constant chest pain occurring 1 hour prior to arrival. The patient described the pain as sharp, but that it did not radiate anywhere. He reports that he also became diaphoretic and clammy. He states that he also had abdominal pain and loose stool today. The patient reports that he has a history of acid reflux and that he has chest pain every day from the acid reflux, but that he normally does not have abdominal pain with it. He reports that he was at a wedding yesterday, and that he had foods which he normally does not eat, but did not have alcohol. Pt denies headache, change in vision, shortness of breath, nausea, vomiting, pain with urination, and melena. Patient states symptoms have since resolved, states they were getting better prior to the arrival of EMS. EMS did give him aspirin and once pain of nitroglycerin, which he does not feel helped. Review of EMR: patient had echocardiogram done in August 2016. LVEF 65-70%, normal systolic function, no wall motion abnormalities. Source of History: patient Onset: 1 hour prior to arrival Position: chest Quality: sharp Timing: constant Associated Symptoms: + abdominal pain, + diarrhea (loose stool ), No headache, No SOB, No nausea, No vomiting, No melena, No urinary symptoms Review of Systems See HPI for pertinent positives & negatives. A total of 10 systems reviewed and were otherwise negative. Past Medical & Surgical Medical Problems: (1) CHEST PAIN, UNSPECIFIED (2) HTN (hypertension) (3) Pneumonia of both lower lobes Surgical Problems: (1) H/O hernia repair Family History Diabetes mellitus FH: heart disease Hypertension Social History Smoking Status: Former Smoker Drug Use: none Marital Status: , Housing Status: lives with family Occupation Status: retired Current/Historical Medications Scheduled Aspirin (Aspirin Ec), 81 MG PO DAILY Cholecalciferol (Vitamin D), 5,000 INTER.UNIT PO QPM Cyanocobalamin (Vitamin B12), 1,000 MCG PO DAILY Guaifenesin Ext Rel (Mucinex Ext Rel), 600 MG PO BID Lisinopril (Lisinopril), 10 MG PO QAM Metoprolol Tartrate (Lopressor), 25 MG PO BID Mometasone Furoate (Asmanex Twisthaler 60 Met), 1 PUFF INH BID Multiple Vitamins W/ Minerals (Centrum Silver Adult 50+), 1 TAB PO DAILY Nifedipine Ext Rel (Procardia Xl Ext Rel), 30 MG PO DAILY Omeprazole (Prilosec), 40 MG PO QAM Sucralfate (Sucralfate), 1 GM PO QID Scheduled PRN Albuterol (Ventolin Hfa), 2 PUFF INH Q4 PRN for SOB/Wheezing Alprazolam (Xanax), 0.5-1 MG PO TID PRN for Anxiety Calcium Carbonate (Tums), 1,500 MG PO PRN PRN for Heartburn Ibuprofen (Ibuprofen), 400 MG PO TID PRN for Pain Allergies Coded Allergies: Penicillins (Verified Allergy, Unknown, HIVES, 09/07/16) Physical Exam Vital Signs Date Time Temp Pulse Resp B/P (MAP) Pulse Ox O2 Delivery O2 Flow Rate FiO2 04/17/17 20:38 67 18 145/91 95 04/17/17 17:57 66 22 144/80 95 04/17/17 17:52 67 24 94 04/17/17 17:47 72 19 95 04/17/17 17:42 65 22 93 04/17/17 17:37 71 19 94 04/17/17 17:32 69 17 93 04/17/17 17:27 71 16 95 04/17/17 17:22 68 19 93 04/17/17 17:17 68 21 94 04/17/17 17:12 75 17 94 04/17/17 17:07 68 24 94 04/17/17 17:02 72 23 93 04/17/17 16:57 74 23 94 04/17/17 16:52 72 22 94 04/17/17 16:47 64 21 93 04/17/17 16:42 71 21 94 04/17/17 16:37 71 22 93 04/17/17 16:32 70 24 94 04/17/17 16:27 79 18 93 04/17/17 16:22 76 21 95 04/17/17 16:17 72 22 94 04/17/17 16:13 72 04/17/17 16:12 75 15 95 04/17/17 16:07 162/87 04/17/17 16:02 96 Room Air 04/17/17 16:02 36.6 96 Room Air 04/17/17 16:02 96 Room Air Physical Exam GENERAL: alert, well appearing, well nourished, no distress, non-toxic EYE EXAM: normal conjunctiva, PERRL and EOM's grossly intact OROPHARYNX: no exudate, no erythema, lips, buccal mucosa, and tongue normal and mucous membranes are moist NECK: supple, no nuchal rigidity, no adenopathy, non-tender LUNGS: Clear to auscultation. Normal chest wall mechanics HEART: no murmurs, S1 normal and S2 normal ABDOMEN: abdomen soft, non-tender, normo-active bowel sounds, no masses, no rebound or guarding. BACK: Back is symmetrical on inspection and there is no deformity, no midline tenderness, no CVA tenderness. SKIN: no rashes and no bruising UPPER EXTREMITIES: upper extremities are grossly normal. LOWER EXTREMITIES: No pitting edema. NEURO EXAM: Normal sensorium, cranial nerves II-XII grossly intact, normal speech, no gross weakness of arms, no gross weakness of legs. No drift. Finger to nose intact. Gross sensation intact. Medical Decision & Procedures ER Provider Diagnostic Interpretation: Radiology results have been interpreted by the radiologist and reviewed by me.. CHEST ONE VIEW PORTABLE CLINICAL HISTORY: chest pain dyspnea COMPARISON STUDY: 01/12/2017 FINDINGS: Mild stable cardiomegaly. Small chronic parenchymal infiltrative process left base. Pulmonary vascular congestion. Right hemidiaphragm is smooth. IMPRESSION: Mild stable cardiomegaly. Pulmonary vascular congestion. Chronic infiltrative process left base The above report was generated using voice recognition software. It may contain grammatical, syntax or spelling errors. Electronically signed by: Figueroa Bullard M.D. 04/17/2017 4:43 PM Dictated Date/Time: 04/17/2017 4:42 PM Laboratory Results 04/17/17 16:10 Red Blood Count 5.09, Mean Corpuscular Volume 85.7, Mean Corpuscular Hemoglobin 30.6, Mean Corpuscular Hemoglobin Concent 35.8, Mean Platelet Volume 9.0, Neutrophils (%) (Auto) 62.2, Lymphocytes (%) (Auto) 30.6, Monocytes (%) (Auto) 5.3, Eosinophils (%) (Auto) 1.5, Basophils (%) (Auto) 0.1, Neutrophils # (Auto) 4.59, Lymphocytes # (Auto) 2.26, Monocytes # (Auto) 0.39, Eosinophils # (Auto) 0.11, Basophils # (Auto) 0.01 04/17/17 16:10 04/17/17 17:25 Test 04/17/17 16:10 04/17/17 16:35 04/17/17 17:25 04/17/17 19:19 White Blood Count 7.38 K/uL (4.8-10.8) Red Blood Count 5.09 M/uL (4.7-6.1) Hemoglobin 15.6 g/dL (14.0-18.0) Hematocrit 43.6 % (42-52) Mean Corpuscular Volume 85.7 fL (80-100) Mean Corpuscular Hemoglobin 30.6 pg (25-34) Mean Corpuscular Hemoglobin Concent 35.8 g/dl (32-36) Platelet Count 216 K/uL (130-400) Mean Platelet Volume 9.0 fL (7.4-10.4) Neutrophils (%) (Auto) 62.2 % Lymphocytes (%) (Auto) 30.6 % Monocytes (%) (Auto) 5.3 % Eosinophils (%) (Auto) 1.5 % Basophils (%) (Auto) 0.1 % Neutrophils # (Auto) 4.59 K/uL (1.4-6.5) Lymphocytes # (Auto) 2.26 K/uL (1.2-3.4) Monocytes # (Auto) 0.39 K/uL (0.11-0.59) Eosinophils # (Auto) 0.11 K/uL (0-0.5) Basophils # (Auto) 0.01 K/uL (0-0.2) RDW Standard Deviation 40.3 fL (36.4-46.3) RDW Coefficient of Variation 12.8 % (11.5-14.5) Immature Granulocyte % (Auto) 0.3 % Immature Granulocyte # (Auto) 0.02 K/uL (0.00-0.02) D-Dimer 340 ug/L FEU (0-500) Anion Gap 5.0 mmol/L (3-11) Est Creatinine Clear Calc Drug Dose 88.1 ml/min Estimated GFR () 102.0 Estimated GFR (Non- 88.0 BUN/Creatinine Ratio 23.2 (10-20) Calcium Level 7.8 mg/dl (8.5-10.1) Total Bilirubin 0.6 mg/dl (0.2-1) Alanine Aminotransferase (ALT/SGPT) 36 U/L (12-78) Alkaline Phosphatase 78 U/L (45-117) Pro-B-Type Natriuretic Peptide 17 pg/ml (0-900) Total Protein 6.9 gm/dl (6.4-8.2) Albumin 3.3 gm/dl (3.4-5.0) Globulin 3.6 gm/dl (2.5-4.0) Albumin/Globulin Ratio 0.9 (0.9-2) Lipase 152 U/L (73-393) Lactic Acid Level 1.8 mmol/L (0.4-2.0) Aspartate Amino Transf (AST/SGOT) 34 U/L (15-37) Chemistry Specimen Hemolysis Troponin I < 0.015 ng/ml (0-0.045) Laboratory results per my review. Medications Administered Medications (Trade) Dose Ordered Sig/Des Route Start Time Stop Time Status Last Admin Dose Admin Pantoprazole Sodium 40 mg/ Syringe 10 ml @ 5 mls/min NOW ONCE IV 04/17/17 17:00 04/17/17 17:01 DC 04/17/17 18:00 5 MLS/MIN Al Hydrox/Mg Hydrox/Simethicone (Maalox Max Susp) 15 ml NOW STAT PO 04/17/17 16:56 04/17/17 16:57 DC 04/17/17 18:01 15 ML ECG Indication: chest pain Rate (beats per minute): 63 Rhythm: normal sinus Findings: no acute ischemic change, no ectopy, other (normal intervals, normal axis, low voltage throughout) ED Course 1606: The patient was evaluated in room C7. A complete history and physical exam was performed. 1656: Ordered Maalox Max Susp 15 ml PO. 1700: Ordered Pantoprazole Sodium 40 mg/Syringe 10 ml @ 5 mls/min IV. 1820: I updated the patient. He has had no recurrent episodes since he arrived here. We will get a repeat troponin. No current pain, repeat abd exam soft/NT. 1999: Upon reevaluation, the patient is feeling better. I discussed the findings and the treatment plan with the patient. He verbalizes agreement and understanding. He was discharged home. Medical Decision Differential diagnosis: Etiologies such as cardiac ischemia, aortic dissection, pulmonary embolism, pneumonia, pneumothorax, musculoskeletal, infections, pericarditis, myocarditis , esophageal rupture, gastrointestinal, as well as others were entertained. HEART score 3 Pt well appearing here with longstanding hx of chest pain mostly thought to be from GERD and occasional anxiety. Pt states today felt more severe but was improving by arrival here. Pt had no recurrence of pain here even with ambulation. Pt with recent stress echo in January reported to him as negative. Two trops negative. Doubt acs, dissection, pe, tamponade, effusion, perf, occult gi bleed, infiltrate, effusion, aaa, mesenteric ischemia. More likely pt with exacerbation of gerd/gastritis given atypical diet yesterday. No recurrence of pain while here and repeat exam unremarkable. VS stable. Discussed close f/u as a precaution given atypical nature of sx. Pt states hasn 't been able to take protonix recently due to insurance issues which may have exacerbated symptoms also. Doubt hypertensive urgency/emergency. Discussed possible follow-up with cardiology also despite negative stress test in January. Discussed with pt risk factors for ACS, discussed ddx of chest/abd pain. Discussed sx to watch/return for. He verbalized understanding of all of this and was agreeable with plan. Medication Reconcilliation Current Medication List: was personally reviewed by me Blood Pressure Screening Patient's blood pressure: Elevated blood pressure Blood pressure disposition: Elevated BP felt to be situational Impression Primary Impression: CHEST PAIN, UNSPECIFIED Scribe Attestation The scribe's documentation has been prepared under my direction and personally reviewed by me in its entirety. I confirm that the note above accurately reflects all work, treatment, procedures, and medical decision making performed by me. Departure Information Dispostion Home / Self-Care Referrals Karrie Hernandez M.D. (PCP) Forms Call Back Authorization, HOME CARE DOCUMENTATION FORM, IMPORTANT VISIT INFORMATION Patient Instructions My [facility] Additional Instructions Please follow up with your regular doctor regarding the episode of more severe chest pain you had today. Please continue regular medications as prescribed. Please avoid any foods that could irritate your stomach or exacerbate your reflux including alcohol, soda, tomato-based products, citrus fruits. If you have any worsening or recurrent chest pain, develop trouble breathing, dizziness , vomiting, or you have any other new concerns, please return the emergency room.
[2017-04-17] MEDS ORDERED: OMEP40CA41 PO (16:18)
[2017-04-17 16:21] LABS: BASO % 0.1 %; BASO ABS # 0.01 K/uL (0-0.2); COMPLETE YES; EOS % 1.5 %; HEMATOCRIT 43.6 % (42-52); IG% 0.3 %; LYMPH % 30.6 %; LYMPH ABS # 2.26 K/uL (1.2-3.4); MEAN CELL VOLUME 85.7 fL (80-100); MEAN CORPUSCULAR HEMOGLOBIN 30.6 pg (25-34); MEAN CORPUSCULAR HGB CONC 35.8 g/dl (32-36); MONO % 5.3 %; NEUT % 62.2 %; PLATELET COUNT 216 K/uL (130-400); RED BLOOD COUNT 5.09 M/uL (4.7-6.1); WHITE BLOOD COUNT 7.38 K/uL (4.8-10.8)
--- NOTE | 2017-04-17 16:44 | DIAGNOSTIC IMAGING REPORT ---
CHEST ONE VIEW PORTABLE CLINICAL HISTORY: chest pain dyspnea COMPARISON STUDY: 01/12/2017 FINDINGS: Mild stable cardiomegaly. Small chronic parenchymal infiltrative process left base. Pulmonary vascular congestion. Right hemidiaphragm is smooth. IMPRESSION: Mild stable cardiomegaly. Pulmonary vascular congestion. Chronic infiltrative process left base The above report was generated using voice recognition software. It may contain grammatical, syntax or spelling errors. Electronically signed by: Figueroa Bullard M.D. 04/17/2017 4:43 PM Dictated Date/Time: 04/17/2017 4:42 PM
[2017-04-17] MEDS ORDERED: ALUMINUM/MAGNESIUM/SIMETH (MAALOX MAX) 30 ML UDC PO STA (16:56)
[2017-04-17] MEDS ORDERED: PANTOprazole INJ 40 MG in SYRINGE 0 ML IV ONE (17:00)
[2017-04-17 17:06] LABS: ALB/GLOB RATIO 0.9 (0.9-2); ALKALINE PHOSPHATASE 78 U/L (45-117); ALT/SGPT 36 U/L (12-78); BLOOD UREA NITROGEN 19 mg/dl (7-18); BUN/CREATININE RATIO 23.2 (10-20); CALCIUM 7.8 mg/dl (8.5-10.1); CARBON DIOXIDE 25 mmol/L (21-32); CHLORIDE 108 mmol/L (98-107); GLUCOSE 100 mg/dl (70-99); SODIUM 138 mmol/L (136-145)
[2017-04-17 17:49] LABS: POTASSIUM 4.1 mmol/L (3.5-5.1)
[2017-04-17 20:38] VITALS: BP 145/91; PULSE 67; O2SAT 95
== END 2017-04-17 20:40 | disposition home or self-care (01) ==
LOC: EDBD 16:02 → C.EDC 16:04
DX: R07.9 Chest pain, unspecified (principal); I10 Essential (primary) hypertension; Z87.01 Personal history of pneumonia (recurrent); Z87.891 Personal history of nicotine dependence; Z98.890 Other specified postprocedural states; Z83.3 Family history of diabetes mellitus; Z82.49 Family history of ischemic heart disease and other diseases of the circulatory system; Z79.82 Long term (current) use of aspirin; Z79.899 Other long term (current) drug therapy

== ENCOUNTER → 2017-08-08 | Outpatient (CLI) | payer OTHER ==
[~2017-08-08] MED LIST changes: -ESOM45CA PO; +OMEP40CA41 PO; -ZNTT/150 PO
== END | disposition home or self-care (01) ==
LOC: C.LABPVFM 08:10
PROVIDERS: ATTEND Internal Medicine Endocrinology, Diabetes & Metabolism
DX: E22.1 Hyperprolactinemia (principal)

== ENCOUNTER → 2017-08-23 | Outpatient (CLI) | payer OTHER ==
--- NOTE | 2017-08-23 15:28 | DIAGNOSTIC IMAGING REPORT ---
CHEST 2 VIEWS ROUTINE CLINICAL HISTORY: HEART PALPITATIONS COMPARISON STUDY: 04/17/2017 FINDINGS: The heart is normal in size. The chest has an emphysematous configuration. There is no lobar consolidation. Linear and bandlike opacities at the left lung base, likely represent atelectasis. An infectious/inflammatory process could appear similar but is felt to be statistically less likely. There is no failure. There are no pleural effusions.[ IMPRESSION: 1. Emphysema 2. Nonspecific left basilar opacities, likely atelectatic Electronically signed by: Devin Webster M.D. 08/23/2017 3:27 PM Dictated Date/Time: 08/23/2017 3:25 PM
== END | disposition home or self-care (01) ==
LOC: C.RADPV 15:07
PROVIDERS: ATTEND Family Medicine
DX: J43.9 Emphysema, unspecified (principal); R91.8 Other nonspecific abnormal finding of lung field

== ENCOUNTER → 2017-11-18 | Outpatient (CLI) | payer OTHER ==
[2017-11-18 13:41] LABS: ALBUMIN 3.9 gm/dl (3.4-5.0); ALT/SGPT 25 U/L (12-78); AST/SGOT 17 U/L (15-37); BLOOD UREA NITROGEN 17 mg/dl (7-18); CARBON DIOXIDE 27 mmol/L (21-32); CHOLESTEROL 128 mg/dl (0-200); CREATININE 1.02 mg/dl (0.60-1.40); GLUCOSE 99 mg/dl (70-99); POTASSIUM 4.4 mmol/L (3.5-5.1); SODIUM 135 mmol/L (136-145)
[2017-11-18 13:44] LABS: ALKALINE PHOSPHATASE 67 U/L (45-117); LDL CHOLESTEROL CALCULATED 46 mg/dl; TOTAL PROTEIN 7.6 gm/dl (6.4-8.2)
== END | disposition home or self-care (01) ==
LOC: C.LABPVFM 08:09
PROVIDERS: ATTEND Family Medicine
DX: F41.9 Anxiety disorder, unspecified (principal); I10 Essential (primary) hypertension; E78.5 Hyperlipidemia, unspecified; E55.9 Vitamin D deficiency, unspecified; J44.9 Chronic obstructive pulmonary disease, unspecified; R00.2 Palpitations; K21.9 Gastro-esophageal reflux disease without esophagitis

== ENCOUNTER → 2018-03-06 | Outpatient (CLI) | payer OTHER ==
--- NOTE | 2018-03-06 12:50 | DIAGNOSTIC IMAGING REPORT ---
CT SCAN OF THE CHEST WITHOUT IV CONTRAST CLINICAL HISTORY: Pulmonary nodules. COMPARISON STUDY: Chest CT scans dated 03/08/2017 02/28/2014. TECHNIQUE: CT scan of the thorax was performed from the thoracic inlet to the upper abdomen. Images are reviewed in the axial, sagittal, and coronal planes. IV contrast was not administered for this examination as per the referring clinician. A dose lowering technique was utilized adhering to the principles of ALARA. CT DOSE: 556.66 mGy.cm FINDINGS: Thyroid: Imaged portions of the thyroid gland are normal in size and attenuation. Thoracic aorta: There is moderate atherosclerotic calcification of the thoracic aorta, which is normal in caliber and demonstrates standard 3-vessel arch anatomy. Heart: The heart is mildly enlarged and without pericardial effusion. Lungs and pleural spaces: There is moderate to advanced emphysema. No airspace consolidation or pleural effusion is identified there is dependent atelectasis. Scattered calcified granulomas are observed. There are numerous (at least 10) pulmonary nodules scattered throughout both lungs. These measure up to 8 mm. 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 These nodule has not appreciably changed in size and distribution from prior studies dating back to 2013. No new pulmonary lesion is clearly identified. The trachea is clear. Mediastinum: There is no mediastinal lymphadenopathy. Calcification containing mediastinal nodes are noted. Roxane: Not well assessed without IV contrast. Axillae: There is no axillary lymphadenopathy. Upper abdomen: There is a tiny hiatal hernia. A 13 mm exophytic cyst arises from the upper pole of the right kidney. Skeletal structures: The skeletal structures are osteopenic. Degenerative changes noted in the thoracic spine. Arthritic change is also seen in the shoulders with numerous calcified joint bodies. No lytic or blastic bony lesions are seen. Soft tissues: There is a 3.7 cm lipoma within the right shoulder musculature seen on image #31. A 1.8 cm lipoma is noted in the right paraspinous musculature on image #145. IMPRESSION: 1. Cardiomegaly and emphysema. 2. There are numerous (at least 10) indeterminant pulmonary nodules scattered throughout both lungs measuring up to 8 mm. These are not appreciably changed dating back to 2014 examination and are of low suspicion. Consider annual screening. 3. No new pulmonary nodule is clearly identified. 4. There is no airspace consolidation or pleural effusion. 5. Additional findings as above. Electronically signed by: Galindo Rush M.D. 03/06/2018 12:49 PM Dictated Date/Time: 03/06/2018 12:40 PM
== END | disposition home or self-care (01) ==
LOC: C.CTS 11:18
PROVIDERS: ATTEND Internal Medicine Pulmonary Disease
DX: R91.8 Other nonspecific abnormal finding of lung field (principal); I51.7 Cardiomegaly; J43.9 Emphysema, unspecified

== ENCOUNTER 2019-09-05 22:53 | Observation (INO) ==
[2019-09-05 23:20] LABS: Basophils # (auto) 0.02 K/uL (0-0.2); Basophils % (auto) 0.2 %; Eosinophils # (auto) 0.09 K/uL (0-0.5); Hemoglobin 16.7 g/dL (14.0-18.0); Immature Granulocytes # (auto) 0.02 K/uL (0.00-0.02); Immature Granulocytes % (auto) 0.2 %; Lymphocytes # (auto) 2.04 K/uL (1.2-3.4); Lymphocytes % (auto) 23.6 %; Mean Corpuscular Hemoglobin 29.7 pg (25-34); Mean Corpuscular Hgb Conc 34.8 g/dL (32-36); Mean Corpuscular Volume 85.4 fL (80-100); Mean Platelet Volume 9.5 fL (7.4-10.4); Monocytes # (auto) 0.44 K/uL (0.11-0.59); Monocytes % (auto) 5.1 %; Neutrophils # (auto) 6.02 K/uL (1.4-6.5); Neutrophils % (auto) 69.9 %; Platelet Count 181 K/uL (130-400); RDW Coefficient of Variation 13.3 % (11.5-14.5); RDW Standard Deviation 41.4 fL (36.4-46.3); Red Blood Count 5.62 M/uL (4.7-6.1); White Blood Count 8.63 K/uL (4.8-10.8)
[2019-09-05] MEDS ORDERED: SODIUM CHLORIDE 0.9% 500 ML IV ONE (23:28)
[2019-09-05 23:38] LABS: Alanine Aminotransferase 46 U/L (12-78); Albumin Level 3.7 gm/dl (3.4-5.0); Aspartate Aminotransferase 62 U/L (15-37); BUN Creatinine Ratio 20.4 (10-20); Blood Urea Nitrogen 22 mg/dl (7-18); Calcium 9.1 mg/dl (8.5-10.1); Carbon Dioxide 25 mmol/L (21-32); Chloride 103 mmol/L (98-107); Creatinine Clr Calc Pharmacy 62.7 ml/min; Est GFR (African American) 76.9; Est GFR (Non-African American) 66.3; Glucose 128 mg/dl (70-99); Potassium 4.1 mmol/L (3.5-5.1); Sodium 137 mmol/L (136-145)
[2019-09-05 23:39] LABS: Partial Thromboplastin Time 25.9 Seconds (21.0-31.0); Prothrombin Time 10.1 Seconds (9.0-12.0)
[2019-09-05 23:43] LABS: Albumin Globulin Ratio 0.9 (0.9-2); Alkaline Phosphatase 94 U/L (45-117); Bilirubin,Total 0.5 mg/dl (0.2-1); Globulin 4.2 gm/dl (2.5-4.0); NT Pro B Type Natriuretic Pept 13 pg/ml (0-1800); Total Protein 7.9 gm/dl (6.4-8.2); Troponin I < 0.015 ng/ml (0-0.045)
[2019-09-05 23:52] LABS: D Dimer 580 ug/L FEU (0-500)
[2019-09-06] MEDS ORDERED: OPTIRAY 320 125ml IV PRN (00:46)
--- NOTE | 2019-09-06 03:06 | Emergency Department Note ---
Entered by Shaheen Douglas acting as a scribe for Jeannette Moulton DO History of Present Illness General Chief complaint: Chest Pain Stated complaint: CHEST PAIN Time Seen by Provider: 09/05/19 23:21 Source: patient History of Present Illness Provider complaint: chest pain Onset (ago): hour(s) 3 Location: chest Radiation: abdomen Pain Consistency: + now resolved Maximum Pain Intensity: 10 Current Pain Intensity: 0 Quality: + sharp Relieved By: + none Associated symptoms: + denies other symptoms The patient is a 74 y/o male who presents to the emergency department for evaluation of now resolved sharp chest pain that began 3 hours ago. The patient states that he was watching TV when he had a sharp chest pain that was a 10/10 t hat radiated to his stomach. He reports that he has a history of acid reflux but had no relief with tums. The patient notes that he has had these episodes for the past 6 months but tonight was not relieved like the previous episodes and it lasted much longer. The patient states that typically sitting up feels best but tonight did not help. He notes that he had recently been taking medication for h ypertension but the increased dosage was making him feel worse and he is concerned that it may have triggered this episodes. Patient states he did follow-up with his production planner scheduler who then instructed him to decrease the medication for his blood pressure again and since then he felt improved. The lexie mac reports that he has been using a stationary bike for the past month and has been having arm pain and weakness with exertion. He states the symptoms go away with rest. The patient denies shortness of breath, arm pain or weakness, and any other symptoms. Home Medications Home Medications Medication Instructions Recorded Confirmed Type albuterol sulfate 2 puff INHALATION Q4H PRN 05/30/18 09/06/19 History aspirin [Aspir-81] 81 mg PO DAILY 05/30/18 09/06/19 History cyanocobalamin (vitamin B-12) 1,000 mcg PO DAILY 05/30/18 09/06/19 History [Vitamin B-12] bomanign-mpf-LX-lycopen-lutein 1 tab PO DAILY 05/30/18 09/06/19 History [Centrum Silver Men] metoprolol tartrate 25 mg tablet 25 mg PO BID #180 tab 02/12/19 09/06/19 Rx mometasone 1 puffs INH BID #3 inhaler 05/03/19 09/06/19 Rx cholecalciferol (vitamin D3) 25 1,000 unit PO DAILY PRN cap 06/19/19 09/06/19 History mcg (1,000 unit) capsule omeprazole 40 mg capsule,delayed 40 mg PO DAILY cap 06/19/19 09/06/19 History release cabergoline 0.5 mg tablet 0.25 mg PO 2XWK #27 tab 07/12/19 09/06/19 Rx lisinopril 30 mg tablet 30 mg PO DAILY #90 tab 07/26/19 09/06/19 Rx alprazolam 0.5 mg tablet 0.5 mg PO TID #90 tab 09/04/19 09/06/19 Rx nifedipine 30 mg PO DAILY 09/06/19 09/06/19 History Allergies Allergy/AdvReac Type Severity Reaction Status Date / Time Penicillins Allergy Unknown HIVES Verified 09/06/19 02:08 venlafaxine Allergy Unknown Unknown Verified 09/06/19 02:08 Past Med/Surg History Medical History Acid reflux disease Anxiety COPD (chronic obstructive pulmonary disease) Gout HTN (hypertension) (Chronic) Hyperprolactinemia Palpitations Pulmonary nodules Surgical History H/O hernia repair (Resolved) Family History Father Myocardial infarction Denies family history of Ovarian cancer Prostate cancer Breast cancer Colorectal cancer Social History Preferred Language: German Communication Ability: Effective [employer]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 and A total of 10 systems reviewed and were otherwise negative Physical Exam Vital Signs Vital Signs - 24 hr 09/05/19 23:01 09/05/19 23:04 09/05/19 23:12 Temperature 37 C Temperature Source Oral Pulse Rate 84 87 Pulse Rate [Apical] Pulse Rate from SpO2 Sensor 83 88 Respiratory Rate 22 22 Respiratory Effort / Characteristics Non-Labored Respiratory Depth Normal Respiratory Pattern Regular Blood Pressure 136/84 Blood Pressure [Left Arm] Blood Pressure Mean 102 Blood Pressure Mean [Left Arm] Blood Pressure Position [Left Arm] Pulse Oximetry 90 89 L 90 Oxygen Delivery Method Room Air Room Air Sepsis Recent Fever Within 48 Hours No Sepsis Action Taken by Nursing No Action Required 09/05/19 23:30 09/05/19 23:31 09/06/19 00:00 Temperature Temperature Source Pulse Rate 78 82 76 Pulse Rate [Apical] Pulse Rate from SpO2 Sensor 81 81 76 Respiratory Rate 21 15 22 Respiratory Effort / Characteristics Respiratory Depth Respiratory Pattern Blood Pressure 143/92 H Blood Pressure [Left Arm] Blood Pressure Mean 98 Blood Pressure Mean [Left Arm] Blood Pressure Position [Left Arm] Pulse Oximetry 92 92 90 Oxygen Delivery Method Sepsis Recent Fever Within 48 Hours Sepsis Action Taken by Nursing 09/06/19 00:01 09/06/19 00:02 09/06/19 00:38 Temperature Temperature Source Pulse Rate 77 78 Pulse Rate [Apical] 86 Pulse Rate from SpO2 Sensor 77 78 Respiratory Rate 22 21 18 Respiratory Effort / Characteristics Respiratory Depth Respiratory Pattern Blood Pressure 144/84 H Blood Pressure [Left Arm] 152/83 H Blood Pressure Mean 106 Blood Pressure Mean [Left Arm] 106 Blood Pressure Position [Left Arm] Sitting Pulse Oximetry 90 90 90 Oxygen Delivery Method Room Air Room Air Sepsis Recent Fever Within 48 Hours Sepsis Action Taken by Nursing 09/06/19 00:40 09/06/19 00:41 09/06/19 01:00 Temperature Temperature Source Pulse Rate 83 83 83 Pulse Rate [Apical] Pulse Rate from SpO2 Sensor 84 83 Respiratory Rate 27 H 22 20 Respiratory Effort / Characteristics Respiratory Depth Respiratory Pattern Blood Pressure 152/83 H Blood Pressure [Left Arm] Blood Pressure Mean 109 Blood Pressure Mean [Left Arm] Blood Pressure Position [Left Arm] Pulse Oximetry 91 90 Oxygen Delivery Method Sepsis Recent Fever Within 48 Hours Sepsis Action Taken by Nursing 09/06/19 01:01 09/06/19 01:30 09/06/19 01:31 Temperature Temperature Source Pulse Rate 75 71 76 Pulse Rate [Apical] Pulse Rate from SpO2 Sensor 77 71 77 Respiratory Rate 19 20 14 Respiratory Effort / Characteristics Respiratory Depth Respiratory Pattern Blood Pressure 135/84 132/83 Blood Pressure [Left Arm] Blood Pressure Mean 100 95 Blood Pressure Mean [Left Arm] Blood Pressure Position [Left Arm] Pulse Oximetry 90 92 91 Oxygen Delivery Method Sepsis Recent Fever Within 48 Hours Sepsis Action Taken by Nursing 09/06/19 02:00 09/06/19 02:30 09/06/19 02:31 Temperature Temperature Source Pulse Rate 65 72 68 Pulse Rate [Apical] Pulse Rate from SpO2 Sensor 69 72 69 Respiratory Rate 24 20 16 Respiratory Effort / Characteristics Respiratory Depth Respiratory Pattern Blood Pressure 145/97 H Blood Pressure [Left Arm] Blood Pressure Mean 113 Blood Pressure Mean [Left Arm] Blood Pressure Position [Left Arm] Pulse Oximetry 90 91 92 Oxygen Delivery Method Room Air Sepsis Recent Fever Within 48 Hours Sepsis Action Taken by Nursing 09/06/19 02:32 09/06/19 03:00 09/06/19 03:01 Temperature Temperature Source Pulse Rate 68 66 71 Pulse Rate [Apical] Pulse Rate from SpO2 Sensor 69 Respiratory Rate 20 21 21 Respiratory Effort / Characteristics Respiratory Depth Respiratory Pattern Blood Pressure 142/88 H Blood Pressure [Left Arm] Blood Pressure Mean 107 Blood Pressure Mean [Left Arm] Blood Pressure Position [Left Arm] Pulse Oximetry 91 Oxygen Delivery Method Sepsis Recent Fever Within 48 Hours Sepsis Action Taken by Nursing 09/06/19 03:30 09/06/19 03:31 Temperature Temperature Source Pulse Rate 65 66 Pulse Rate [Apical] Pulse Rate from SpO2 Sensor Respiratory Rate 19 19 Respiratory Effort / Characteristics Respiratory Depth Respiratory Pattern Blood Pressure 141/95 H Blood Pressure [Left Arm] Blood Pressure Mean 108 Blood Pressure Mean [Left Arm] Blood Pressure Position [Left Arm] Pulse Oximetry Oxygen Delivery Method Sepsis Recent Fever Within 48 Hours Sepsis Action Taken by Nursing GENERAL: alert, well appearing, well nourished, no distress, non-toxic EYE EXAM: normal conjunctiva, PERRL and EOM's grossly intact OROPHARYNX: no exudate, no erythema, lips, buccal mucosa, and tongue normal and mucous membranes are moist NECK: supple, no nuchal rigidity, no adenopathy, non-tender LUNGS: Diminished breath sounds no W/R/R. Normal chest wall mechanics HEART: no murmurs, S1 normal and S2 normal CHEST: No reproducible chest wall pain ABDOMEN: abdomen soft, non-tender, normo-active bowel sounds, no masses, no rebound or guarding. BACK: Back is symmetrical on inspection and there is no deformity, no midline tenderness, no CVA tenderness. SKIN: no rashes and no bruising UPPER EXTREMITIES: upper extremities are grossly normal. FROM, nml pulses b/l. LOWER EXTREMITIES: No pitting edema. FROM, nml pulses b/l. NEURO EXAM: Normal sensorium, cranial nerves II-XII intact, normal speech, no weakness of arms, no weakness of legs. Course Course 2323: Past medical records reviewed. The patient was evaluated in room C01. A complete history and physical exam was performed. 0210: I checked on the patient and updated him on his results. I did review records in the EMR on patient's prior hospital visits. There was mention of a stress echo performed in 2017 with a normal ejection fraction. 0250: I re-evaluated the patient and we discussed treatment options. The patient is agreeable to admission. 0320: I spoke with Dr. Pascual Hospitalist. He will evaluate for further management. Administered Medications Discontinued Medications Sodium Chloride (Nss) 500 mls @ 999 mls/hr IV .Q31M ONE Stop: 09/05/19 23:58 Last Infusion: 09/06/19 00:26 Dose: 0 mls/hr Documented by: [id number] Admin: 09/05/19 23:52 Dose: 999 mls/hr Documented by: [id number] Ioversol (Optiray 320 125ml) 125 ml IV ONCE PRN PRN Reason: Interaction Checking Stop: 09/10/19 00:45 Last Admin: 09/06/19 00:46 Dose: 118 ml Documented by: [id number] Medical Decision Making Differential Diagnosis the differential was considered includes acute myocardial infarction, acute coronary syndrome, myocarditis, pericarditis, pericardial effusions /tamponad, esophageal perforation, thoracic aortic dissection, pulmonary embolism, pneumonia, pneumothorax, pancreatitis, shingles, acute cholecystitis, perforated abdominal viscus. Medical Records Attestation: I reviewed the patient's medical records. Home Medications Current Medication List: was personally reviewed by me Laboratory Data Attestation: I reviewed the patient's lab results. Result diagrams: 09/05/19 23:01 09/05/19 23:01 Lab Results 09/05/19 09/05/19 09/05/19 Range/Units 23:01 23:01 23:01 WBC 8.63 (4.8-10.8) K/uL RBC 5.62 (4.7-6.1) M/uL Hgb 16.7 (14.0-18.0) g/dL Hct 48.0 (42-52) % MCV 85.4 (80-100) fL MCH 29.7 (25-34) pg MCHC 34.8 (32-36) g/dL RDW Std Deviation 41.4 (36.4-46.3) fL RDW Coeff of Ti 13.3 (11.5-14.5) % Plt Count 181 (130-400) K/uL MPV 9.5 (7.4-10.4) fL Immature Gran % (Auto) 0.2 % Neut % (Auto) 69.9 % Lymph % (Auto) 23.6 % [place] % (Auto) 5.1 % Eos % (Auto) 1.0 % Baso % (Auto) 0.2 % Immature Gran # (Auto) 0.02 (0.00-0.02) K/uL Neut # (Auto) 6.02 (1.4-6.5) K/uL Lymph # (Auto) 2.04 (1.2-3.4) K/uL [place] # (Auto) 0.44 (0.11-0.59) K/uL Eos # (Auto) 0.09 (0-0.5) K/uL Baso # (Auto) 0.02 (0-0.2) K/uL PT 10.1 (9.0-12.0) Seconds INR 1.0 (0.9-1.1) APTT 25.9 (21.0-31.0) Seconds PTT Ratio 1.0 D-Dimer (0-500) ug/L FEU Sodium 137 (136-145) mmol/L Potassium 4.1 (3.5-5.1) mmol/L Chloride 103 (98-107) mmol/L Carbon Dioxide 25 (21-32) mmol/L Anion Gap 9.0 (3-11) BUN 22 H (7-18) mg/dl Creatinine 1.08 (0.6-1.4) mg/dl Est Cr Clr Drug Dosing 62.7 ml/min Est GFR ( Amer) 76.9 Est GFR (Non-Af Amer) 66.3 BUN/Creatinine Ratio 20.4 H (10-20) Glucose 128 H (70-99) mg/dl Calcium 9.1 (8.5-10.1) mg/dl Total Bilirubin 0.5 (0.2-1) mg/dl AST 62 H (15-37) U/L ALT 46 (12-78) U/L Alkaline Phosphatase 94 (45-117) U/L Troponin I < 0.015 (0-0.045) ng/ml NT-Pro-B Natriuret Pep 13 (0-1800) pg/ml Total Protein 7.9 (6.4-8.2) gm/dl Albumin 3.7 (3.4-5.0) gm/dl Globulin 4.2 H (2.5-4.0) gm/dl Albumin/Globulin Ratio 0.9 (0.9-2) 09/05/19 Range/Units 23:01 WBC (4.8-10.8) K/uL RBC (4.7-6.1) M/uL Hgb (14.0-18.0) g/dL Hct (42-52) % MCV (80-100) fL MCH (25-34) pg MCHC (32-36) g/dL RDW Std Deviation (36.4-46.3) fL RDW Coeff of Ti (11.5-14.5) % Plt Count (130-400) K/uL MPV (7.4-10.4) fL Immature Gran % (Auto) % Neut % (Auto) % Lymph % (Auto) % [place] % (Auto) % Eos % (Auto) % Baso % (Auto) % Immature Gran # (Auto) (0.00-0.02) K/uL Neut # (Auto) (1.4-6.5) K/uL Lymph # (Auto) (1.2-3.4) K/uL [place] # (Auto) (0.11-0.59) K/uL Eos # (Auto) (0-0.5) K/uL Baso # (Auto) (0-0.2) K/uL PT (9.0-12.0) Seconds INR (0.9-1.1) APTT (21.0-31.0) Seconds PTT Ratio D-Dimer 580 H* (0-500) ug/L FEU Sodium (136-145) mmol/L Potassium (3.5-5.1) mmol/L Chloride (98-107) mmol/L Carbon Dioxide (21-32) mmol/L Anion Gap (3-11) BUN (7-18) mg/dl Creatinine (0.6-1.4) mg/dl Est Cr Clr Drug Dosing ml/min Est GFR ( Amer) Est GFR (Non-Af Amer) BUN/Creatinine Ratio (10-20) Glucose (70-99) mg/dl Calcium (8.5-10.1) mg/dl Total Bilirubin (0.2-1) mg/dl AST (15-37) U/L ALT (12-78) U/L Alkaline Phosphatase (45-117) U/L Troponin I (0-0.045) ng/ml NT-Pro-B Natriuret Pep (0-1800) pg/ml Total Protein (6.4-8.2) gm/dl Albumin (3.4-5.0) gm/dl Globulin (2.5-4.0) gm/dl Albumin/Globulin Ratio (0.9-2) Imaging Data Attestation: I personally reviewed and interpreted this imaging study as follows: My Impression: Chest x-ray showed no cardiomegaly, no effusions, no wide mediastinum, no acute pulmonary edema, scarring again noted in the left lung, no acute change compared to prior. Radiologist's Impression: Radiology results as stated below per my review and the radiologist's interpretation: CT CHEST Without Contrast: CTACHEST: 2 cm right anterior peritracheal benign lymph node. Stigmata of p revious granulomatous disease with subcarinal calcified lymph node and right lung calcified granuloma Right kidney upper pole 1.7 cm cyst. Lungs: Moderate bilateral lung emphysematous changes. Multiple bilateral lung nodules ranging in size between 2 and 5.5 mm. Based on clinical correlation and risk factors 6 or 12 month follow-up is recommended. Vascular: Mild subglottic calcification of the aortic arch and descending thoracic aorta. Negative for aneurysm or dissection. Coronary arteries are patent. Heart and pericardium are unremarkable. Radiologist: Niya Callahan MD ECG Data Attestation: I personally reviewed and interpreted this ECG as follows: Indication: + chest pain Rate (beats per minute): 85 Rhythm: + sinus rhythm ECG ST segments: no ST depression and no ST elevation ECG Findings: + Other (low voltage); no PACs and no PVCs Blood Pressure Blood Pressure Findings: Elevated blood pressure Blood Pressure Disposition: further management by hospitalist TEOFILO Narrative Patient here well-appearing and symptoms had resolved by the time of arrival. Patient did try taking Tums at home and was then given additional nitro by EMS. It is possible patient may have had esophageal spasm which was broken with the additional nitro by EMS. Patient does have a longstanding history of GERD and frequently gets sharp but brief episodes of chest pain related to his GERD. Koffi's episode was atypical, and on additional questioning, patient has been having exertional shoulder and bilateral arm heaviness and weakness over the course of the last month since he began trying to exercise more frequently at the recommendation of his production planner scheduler. Patient states his blood pressure medications have been adjusted recently to. Patient denies any other dietary changes and knows to limit the amount of acidic food and drink in his diet. Patient's labs and imaging here are reassuring. No evidence of acute vascular etiology. Due to concerning story for exertional discomfort and likely his anginal equivalent, I discussed with patient additional inpatient evaluation, he was in agreement with plan and was made aware of all results. Case discussed with hospitalist. I do not suspect PE, GI bleed, perforation, mediastinitis, CHF, pericardial effusion. No evidence of ACS at this time. No dysrhythmia noted on telemetry. Impression & Plan Chest pain, HTN (hypertension), GERD (gastroesophageal reflux disease), Angina pectoris, unspecified Discharge Plan Visit Data *Final* Discharge Date/Time: 09/06/19 05:00 Chief Complaint: Chest Pain Stated Complaint: CHEST PAIN ED Provider: Jeannette Moulton Discharge Problem: Chest pain, HTN (hypertension), GERD (gastroesophageal reflux disease), Angina pectoris, unspecified Patient Disposition: Admitted As Inpatient Discharge Problem: Chest pain Qualifiers: Chest pain type: unspecified Qualified Code(s): R07.9 - Chest pain, unspecified HTN (hypertension) Qualifiers: Hypertension type: unspecified Qualified Code(s): I10 - Essential (primary) hypertension GERD (gastroesophageal reflux disease) Qualifiers: Esophagitis presence: esophagitis presence not specified Qualified Code(s): K21.9 - Gastro-esophageal reflux disease without esophagitis The micahibe's documentation has been prepared under my direction and personally reviewed by me in its entirety. I confirm that the note above accurately reflects all work, treatment, procedures, and medical decision making performed by me.
--- NOTE | 2019-09-06 03:44 | History & Physical Report ---
Date of Service September 06, 2019 Assessment & Plan (1) Chest pain: OBS PCU serial trops Cardiology consult PRN NTG (2) GERD (gastroesophageal reflux disease): Continue omeprazole (3) Hyperprolactinemia: Continue cabergoline (4) COPD (chronic obstructive pulmonary disease): Prn albuterol nebs continue Asmanex (5) Anxiety: continue alprazolam (6) HTN (hypertension): Continue lisinopril, metoprolol, nifedipine. History of Present Illness 74 y/o male presented to the ED with episode of 10/10 chest pain that radiated to the epigastric region while watching TV. He had taken TUMS at home with no relief. En route, NTG relieved his symptoms. He reports that since he started using stationary bike, he is getting exertional L arm pain and weakness. No F/C, cough, SOB, N/V/D or lightheadedness. Primary Care Provider: Karrie Hernandez MD Allergies Allergy/AdvReac Type Severity Reaction Status Date / Time Penicillins Allergy Unknown HIVES Verified 09/06/19 02:08 venlafaxine Allergy Unknown Unknown Verified 09/06/19 02:08 Home Medications Home Medications Medication Instructions Recorded Confirmed Type albuterol sulfate 2 puff INHALATION Q4H PRN 05/30/18 09/06/19 History aspirin [Aspir-81] 81 mg PO DAILY 05/30/18 09/06/19 History cyanocobalamin (vitamin B-12) 1,000 mcg PO DAILY 05/30/18 09/06/19 History [Vitamin B-12] [id number]-OF-lycopen-lutein 1 tab PO DAILY 05/30/18 09/06/19 History [Centrum Silver Men] metoprolol tartrate 25 mg tablet 25 mg PO BID #180 tab 02/12/19 09/06/19 Rx mometasone 1 puffs INH BID #3 inhaler 05/03/19 09/06/19 Rx cholecalciferol (vitamin D3) 25 1,000 unit PO DAILY PRN cap 06/19/19 09/06/19 H istory mcg (1,000 unit) capsule omeprazole 40 mg capsule,delayed 40 mg PO DAILY cap 06/19/19 09/06/19 History release cabergoline 0.5 mg tablet 0.25 mg PO 2XWK #27 tab 07/12/19 09/06/19 Rx lisinopril 30 mg tablet 30 mg PO DAILY #90 tab 07/26/19 09/06/19 Rx alprazolam 0.5 mg tablet 0.5 mg PO TID #90 tab 09/04/19 09/06/19 Rx nifedipine 30 mg PO DAILY 09/06/19 09/06/19 History Past Med/Surg History Medical History Acid reflux disease Anxiety COPD (chronic obstructive pulmonary disease) Gout HTN (hypertension) (Chronic) Hyperprolactinemia Palpitations Pulmonary nodules Surgical History H/O hernia repair (Resolved) Family History Father Myocardial infarction Denies family history of Ovarian cancer Prostate cancer Breast cancer Colorectal cancer Social History Preferred Language: Bahraini marital status: Current Living Situation: Spouse current occupational status: retired Feels Safe at Home: Yes Smoking Status: Former smoker Hx Alcohol Use: No Hx Substance Use: No caffeine: No Dental Care, Regularly: No Physical Activity Frequency: Does not Exercise Seatbelt Use: always Sunscreen Use: No Review of Systems Review of Systems: All systems reviewed & are unremarkable except as noted in HPI & below Physical Exam Physical Exam: General- adult male, NAD. Head- atraumatic Eyes- PERRL, EOMI, anicteric ENT- oropharynx clear Neck- supple, no JVD, no adenopathy, no thyromegaly. Lungs- CTA b/l no R/R/W. Heart- regular rhythm; no murmur, no gallop, no rub appreciated Abdomen- normal bowel sounds, soft, nontender. Extremities- no pretibial edema, no calf tenderness; peripheral pulses intact Neuro- alert, oriented x 3; PERRL, EOMI; city detective II-XII grossly intact, non-focal. Skin- warm & dry Results & Data Vital Signs (Past 12 Hours) Vital Signs Temp Pulse Pulse Resp BP BP Pulse Ox 09/06/19 02:31 68 16 145/97 H 92 09/06/19 02:30 72 20 91 09/06/19 02:00 65 24 90 09/06/19 01:31 76 14 132/83 91 09/06/19 01:30 71 20 92 09/06/19 01:01 75 19 135/84 90 09/06/19 01:00 83 20 90 09/06/19 00:41 83 22 91 09/06/19 00:40 83 27 H 152/83 H 09/06/19 00:38 86 18 152/83 H 90 09/06/19 00:02 78 21 90 09/06/19 00:01 77 22 144/84 H 90 09/06/19 00:00 76 22 90 09/05/19 23:31 82 15 143/92 H 92 09/05/19 23:30 78 21 92 09/05/19 23:12 90 09/05/19 23:04 87 22 89 L 09/05/19 23:01 37 C 84 22 136/84 90 Laboratory Results Laboratory Results WBC 8.63 K/uL (4.8-10.8) 09/05/19 23:01 RBC 5.62 M/uL (4.7-6.1) 09/05/19 23:01 Hgb 16.7 g/dL (14.0-18.0) 09/05/19 23:01 Hct 48.0 % (42-52) 09/05/19 23:01 MCV 85.4 fL (80-100) 09/05/19 23:01 MCH 29.7 pg (25-34) 09/05/19 23:01 MCHC 34.8 g/dL (32-36) 09/05/19 23:01 RDW Std Deviation 41.4 fL (36.4-46.3) 09/05/19 23:01 RDW Coeff of Ti 13.3 % (11.5-14.5) 09/05/19 23: Plt Count 181 K/uL (130-400) 09/05/19 23:01 MPV 9.5 fL (7.4-10.4) 09/05/19 23:01 Immature Gran % (Auto) 0.2 % 09/05/19 23:01 Neut % (Auto) 69.9 % 09/05/19 23:01 Lymph % (Auto) 23.6 % 09/05/19 23: [place] % (Auto) 5.1 % 09/05/19 23: Eos % (Auto) 1.0 % 09/05/19 23: Baso % (Auto) 0.2 % 09/05/19 23: Immature Gran # (Auto) 0.02 K/uL (0.00-0.02) 09/05/19 23: Neut # (Auto) 6.02 K/uL (1.4-6.5) 09/05/19 23: Lymph # (Auto) 2.04 K/uL (1.2-3.4) 09/05/19 23: [place] # (Auto) 0.44 K/uL (0.11-0.59) 09/05/19 23: Eos # (Auto) 0.09 K/uL (0-0.5) 09/05/19 23: Baso # (Auto) 0.02 K/uL (0-0.2) 09/05/19 23: PT 10.1 Seconds (9.0-12.0) 09/05/19 23: INR 1.0 (0.9-1.1) 09/05/19 23: APTT 25.9 Seconds (21.0-31.0) 09/05/19: PTT Ratio 1.0 09/05/19 23: D-Dimer 580 ug/L FEU (0-500) H* 09/05/19 23: Sodium 137 mmol/L (136-145) 09/05/19: Potassium 4.1 mmol/L (3.5-5.1) 09/05/19: Chloride 103 mmol/L (98-107) 09/05/19 23: Carbon Dioxide 25 mmol/L (21-32) 09/05/19: Anion Gap 9.0 (3-11) 09/05/19: BUN 22 mg/dl (7-18) H 09/05/19 23: Creatinine 1.08 mg/dl (0.6-1.4) 09/05/19 23: Est Cr Clr Drug Dosing 62.7 ml/min 09/05/19: Est GFR ( Amer) 76.9 09/05/19 23:01 Est GFR (Non-Af Amer) 66.3 09/05/19 23:01 BUN/Creatinine Ratio 20.4 (10-20) H 09/05/19 23:01 Glucose 128 mg/dl (70-99) H 09/05/19 23:01 Calcium 9.1 mg/dl (8.5-10.1) 09/05/19 23:01 Total Bilirubin 0.5 mg/dl (0.2-1) 09/05/19 23:01 AST 62 U/L (15-37) H 09/05/19 23:01 ALT 46 U/L (12-78) 09/05/19 23:01 Alkaline Phosphatase 94 U/L (45-117) 09/05/19 23: Troponin I < 0.015 ng/ml (0-0.045) 09/05/19 23: NT-Pro-B Natriuret Pep 13 pg/ml (0-1800) 09/05/19 23: Total Protein 7.9 gm/dl (6.4-8.2) 09/05/19 23: Albumin 3.7 gm/dl (3.4-5.0) 09/05/19 23: Globulin 4.2 gm/dl (2.5-4.0) H 09/05/19 23:01 Albumin/Globulin Ratio 0.9 (0.9-2) 09/05/19 23: Code Status & VTE Plan VTE Prophylaxis Plan VTE Prophylaxis will be ordered: Yes PG Care Time/CCT Total # of Minutes Spent Total Time Spent: 60 Total Time Spent with Patient: Total time spent is greater than 50% in coordination of care (as documented) at patient's floor/unit and/or counseling patient: Coding Level of Care Code 74766 OBS Care - Level 3 Diagnoses Chest pain R07.9 Chest pain type: unspecified GERD (gastroesophageal reflux disease) K21.9 Esophagitis presence: esophagitis presence not specified Hyperprolactinemia E22.1 COPD (chronic obstructive pulmonary disease) J44.9 Anxiety F41.9 HTN (hypertension) I10 Hypertension type: unspecified (1) GERD (gastroesophageal reflux disease) Esophagitis presence: esophagitis presence not specified Qualified Code(s): K21.9 - Gastro-esophageal reflux disease without esophagitis (2) Chest pain Chest pain type: unspecified Qualified Code(s): R07.9 - Chest pain, unspecified (3) HTN (hypertension) Hypertension type: unspecified Qualified Code(s): I10 - Essential (primary) hypertension
[2019-09-06] MEDS ORDERED: ALBUTEROL 0.083% NEBU SOLN 3 ML VIAL NEB PRN (05:19)
[2019-09-06] MEDS ORDERED: ACETAMINOPHEN 325 MG TAB PO PRN (05:19)
[2019-09-06] MEDS ORDERED: CHOLECALCIFEROL 1,000 UNITS 25 MCG TAB PO PRN (05:19)
[2019-09-06] MEDS ORDERED: ONDANSETRON INJ 2 MG/ML 2 ML VIAL IV PRN (05:19)
[2019-09-06] MEDS ORDERED: NITROGLYCERIN SL 0.4 MG/TAB TAB SL PRN (05:19)
--- NOTE | 2019-09-06 06:38 | XRay Report ---
XR chest 1V portable HISTORY: 74 years-old Male Chest Pain acute atypical chest pain COMPARISON: CTA of the chest of same day, chest radiograph 05/30/2018 TECHNIQUE: Portable AP view of the chest FINDINGS: Cardiac silhouette is mildly enlarged. Severe emphysema with chronic fibrotic changes. Mild bibasilar atelectasis. Bilateral solid pulmonary nodules are better assessed on the comparison CTA chest of sa me day. Degenerative changes of the shoulders and spine. IMPRESSION: 1. Severe emphysema without acute process. 2. Mild bibasilar atelectasis. 3. Bilateral solid pulmonary nodules are better seen and assessed on CTA chest of same day. ACT 112: Negative or not required by law. The above report was generated using voice recognition software. It may contain grammatical, syntax o r spelling errors. Electronically signed by: Kvng Brownlee M.D. 09/06/2019 6:37 AM
--- NOTE | 2019-09-06 07:40 | CT Scan Report ---
CT ANGIOGRAM OF THE CHEST COMBO CLINICAL HISTORY: Atypical chest pain. Bilateral arm pain. COMPARISON STUDY: Chest CT scans dated 05/30/2018 and 05/20/2016. TECHNIQUE: Before and following the IV administration of 118 cc of Optiray 320, CT angiogram of the c hest was performed from the thoracic inlet to the upper abdomen utilizing the dissection protocol. Im ages are reviewed in the axial, sagittal, and coronal planes. 3-D MIPS images are created and assesse d. IV contrast was administered without complication. A dose lowering technique was utilized adherin g to the principles of ALARA. CT DOSE: 1666.98 mGy.cm FINDINGS: Thyroid: Imaged portions of the thyroid gland are normal in size and attenuation. A subcentimeter low -attenuation nodule is noted in the left lobe. Thoracic aorta: No intramural hematoma is seen on the unenhanced series. There is atherosclerotic rodriguez cification of the thoracic aorta, which is normal in caliber and demonstrates standard 3-vessel arch anatomy. No dissection is seen. The arch vessels are widely patent. Pulmonary vasculature: The pulmonary trunk is normal in caliber. There are no central filling defects identified in the pulmonary vessels to suggest pulmonary embolus. Note that this examination was not specifically protocoled to assess for pulmonary emboli. Heart: The heart is top normal in size and without pericardial effusion. Lungs and pleural spaces: Advanced emphysematous change is identified. There is no airspace consolida tion typical for pneumonia or pleural effusion. Scarring/atelectasis is noted at the lung bases. Ther e are scattered calcified granulomas. Minimal secretions are noted in the trachea. There are numerous (at least 10) pulmonary nodules scattered throughout both lungs. The largest is in the left upper lo be as seen on image #78 and measures 8 mm. A 7 mm nodule in the lingula seen on image #164 was not cl early seen on previous examinations. Mediastinum: There is no mediastinal lymphadenopathy. There are calcification containing mediastinal nodes. Roxane: There are calcified right hilar nodes. No hilar adenopathy is identified. Axillae: There is no axillary lymphadenopathy. Upper abdomen: There is a small hiatal hernia. A 1.7 cm cyst arises from the upper pole of the right kidney. The spleen is mildly enlarged measuring 16 cm in length. Skeletal structures: The skeletal structures are osteopenic. Degenerative change is noted in the shou lders and thoracic spine. No lytic or blastic bony lesions are seen. IMPRESSION: 1. There is no aneurysm or dissection involving the thoracic aorta. 2. Advanced emphysema. 3. There is no airspace consolidation or pleural effusion. 4. There are numerous (at least 10) pulmonary nodules. The majority of these been present dating back to 2016 anterolisthesis patient. A 7 mm nodule in the lingula is new from 05/30/2018. This is patholo gically indeterminant and may be on an inflammatory basis. Follow-up as per the Fleischner criteria i s recommended. See below. 5. Additional findings as above. Please refer to below summary of Fleischner criteria recommendations for follow-up of incidental CT n odules (Noemi Mora, Guidelines for management of small pulmonary nodules detected on CT scans: A sta tement from the Fleischner Society, Radiology 237: [phone].) SOLID NODULES Solitary nodule size: <6 mm * low risk patients: no follow-up needed * high risk patients: optional CT at 12 months Solitary nodule size: 6-8 mm * low risk patients: follow-up at 6-12 months, then consider further follow-up at 18-24 months * high risk patients: initial follow-up CT at 6-12 months and then at 18-24 months if no change Solitary nodule size: >8 mm * either low or high risk patients - consider follow-up CT at 3 months, and/or CT-PET, and/or biopsy Multiple nodules size: <6 mm * low risk patients: no routine follow-up * high risk patients: optional CT at 12 months Multiple nodules size: 6-8 mm * low risk patients: follow-up at 3-6 months, then consider further follow-up at 18-24 months * high risk patients: follow-up at 3-6 months, then at 18-24 months if no change Multiple nodules size: >8 mm * low risk patients: follow-up at 3-6 months, then consider further follow-up at 18-24 months * high risk patients: follow-up at 3-6 months, then at 18-24 months if no change Note: newly detected indeterminate nodule in persons 35 years of age or older. * low risk patients: minimal or absent history of smoking and/or other known risk factors * high risk patients: history of smoking or of other known risk factors (e.g. first degree relative with lung cancer, or exposure to asbestos, radon, uranium) * if a nodule up to 8 mm is partly solid or is ground glass further follow-up is required after 24 m onths to exclude possible slow growing adenocarcinoma (TATIANNA) SUBSOLID NODULES Solitary pure ground-glass nodule * nodule size <6 mm - no CT follow-up required * nodule size >=6 mm - follow-up CT at 6-12 months, then every 2 years until 5 years Solitary part-solid nodule * nodule size <6 mm - no CT follow-up required * nodule size >=6 mm - follow-up CT at 3-6 months. If unchanged, and solid component remains <6 mm, then annual follow-up for 5 years Multiple subsolid nodules * nodule size <6 mm - follow-up CT at 3-6 months, consider further follow-up at 2 and 4 years if sta ble * nodule size >=6 mm - follow-up CT at 3-6 months, subsequent management based on the most suspiciou s nodule(s) ACT 112: Negative or not required by law. Electronically signed by: Galindo Rush M.D. 09/06/2019 7:39 AM
[2019-09-06] MEDS ORDERED: NIFEdipine EXTENDED REL 30 MG TABCR PO SCH (09:00)
[2019-09-06] MEDS ORDERED: FLUTICASONE FUROATE 200MCG 14 PUFFS/INHALER INH SCH (09:00)
[2019-09-06] MEDS ORDERED: METOPROLOL TARTRATE 25 MG TAB PO SCH (09:00)
[2019-09-06] MEDS ORDERED: lisinopriL 10 MG TAB PO SCH (09:00)
[2019-09-06] MEDS ORDERED: ASPIRIN 81 MG ECTAB PO SCH (09:00)
[2019-09-06] MEDS ORDERED: CEROVITE ADV FORMULA TAB PO SCH (09:00)
[2019-09-06] MEDS ORDERED: HEPARIN SOD 5,000 UNIT/0.5 ML VIAL SQ SCH (09:00)
[2019-09-06] MEDS ORDERED: CYANOCOBALAMIN 500 MCG TABLET (VITAMIN B-12) PO SCH (09:00)
[2019-09-06] MEDS ORDERED: PANTOprazole 40 MG TAB PO SCH (09:00)
[2019-09-06] MEDS: ALPRAZolam 0.5 MG TABLET PO SCH ×2 (09:06→15:28)
[2019-09-06] MEDS ORDERED: HydrALAZINE HCL 20 MG/ML VIAL IV PRN (12:06)
[2019-09-06] MEDS ORDERED: DOBUTamine HCL 12.5 MG/ML 20 ML VIAL IV ONE (13:06)
[2019-09-06] MEDS ORDERED: METOPROLOL TARTRATE 1 MG/ML VIAL IV ONE (13:06)
[2019-09-06] MEDS ORDERED: ATROPINE SULFATE 0.1 MG/ML 10ML SYR IV ONE (13:06)
--- NOTE | 2019-09-06 13:33 | Cardiology Consultation ---
Date of Consultation September 06, 2019 Assessment & Plan (1) Chest pain: 2. Hypertension 3. Dyslipidemia 4. Preserved LV function with grade 1 diastolic dysfunction Episode of acute chest pain yesterday different than prior atypical chest symptoms. Also reports some new atypical exertional symptoms. No signs of ischemia on initial testing. With patient's risk factors suspicion for hemodynamically significant CAD modestly elevated. Recommend repeat dobutamine stress echo to further evaluate. Assuming test unremarkable suspect chest pain most likely GI in nature and could be discharged later today. Thank you for allowing us to participate in the care of this patient. Please contact with any questions. History of Present Illness Attending Physician: Niko Gray History of Present Illness Mr. Mckinley is a very pleasant 74-year-old man with a history COPD, hypertension, hyperlipidemia and atypical chest pain admitted yesterday with an episode of acute chest pain. Patient states that yesterday evening while sitting watching TV when developed acute burning substernal chest pain that radiated up into his neck and down into his abdomen. No associated shortness of breath. Had maybe one similar episode months ago during a stressful time following the passing of his mother. This pain is different than prior atypical chest symptoms. Does report occasional burning in his hands when using a stationary bike but denies any exertional chest discomfort. Brought to [facility] by EMS yesterday. ECG showed sinus rhythm without dynamic ST changes. Troponin negative x2. Telemetry unremarkable. Prior cardiac history: Patient initially seen by me at [facility] in August of 2016 when was admitted with pneumonia. At that time had endorse intermittent chest pain during his hospitalization. EKGs, cardiac enzymes negative for signs of ischemia. Repeat echocardiogram showed normal LV function without any regional wall motion abnormalities or significant valvular pathology. September of 2016 dobutamine stress echo was negative. Prior cardiovascular studies: Dobutamine stress echo (09/2016): negative DSE 107 percent MPHR, normal resting LV size and function Echo (08/2016): Normal LV size, LVEF 65-70 percent, no significant valvular pathology, grade 1 diastolic dysfunction Allergies Allergy/AdvReac Type Severity Reaction Status Date / Time Penicillins Allergy Unknown HIVES Verified 09/06/19 02:08 venlafaxine Allergy Unknown Unknown Verified 09/06/19 02:08 Home Medications Home Medications Medication Instructions Recorded Confirmed Type albuterol sulfate 2 puff INHALATION Q4H PRN 05/30/18 09/06/19 History aspirin [Aspir-81] 81 mg PO DAILY 05/30/18 09/06/19 History cyanocobalamin (vitamin B-12) 1,000 mcg PO DAILY 05/30/18 09/06/19 History [Vitamin B-12] [id number]-axp-JH-lycopen-lutein 1 tab PO DAILY 05/30/18 09/06/19 History [Centrum Silver Men] metoprolol tartrate 25 mg tablet 25 mg PO BID #180 tab 02/12/19 09/06/19 Rx mometasone 1 puffs INH BID #3 inhaler 05/03/19 09/06/19 Rx cholecalciferol (vitamin D3) 25 1,000 unit PO DAILY PRN cap 06/19/19 09/06/19 History mcg (1,000 unit) capsule omeprazole 40 mg capsule,delayed 40 mg PO DAILY cap 06/19/19 09/06/19 History release cabergoline 0.5 mg tablet 0.25 mg PO 2XWK #27 tab 07/12/19 09/06/19 Rx lisinopril 30 mg tablet 30 mg PO DAILY #90 tab 07/26/19 09/06/19 Rx alprazolam 0.5 mg tablet 0.5 mg PO TID #90 tab 09/04/19 09/06/19 Rx nifedipine 30 mg PO DAILY 09/06/19 09/06/19 History Patient History Medical History Acid reflux disease Anxiety COPD (chronic obstructive pulmonary disease) Gout HTN (hypertension) (Chronic) Hyperprolactinemia Palpitations Pulmonary nodules Surgical History H/O hernia repair (Resolved) Family History Father Myocardial infarction Denies family history of Ovarian cancer Prostate cancer Breast cancer Colorectal cancer Social History Preferred Language: Danish Communication Ability: Effective Enterprise Integration Architect Required: No Beliefs That Will Affect Care: None marital status: Current Living Situation: Spouse current occupational status: retired Feels Safe at Home: Yes Smoking Status: Former smoker Hx Alcohol Use: No Hx Substance Use: No caffeine: No Dental Care, Regularly: No Physical Activity Frequency: Does not Exercise Seatbelt Use: always Sunscreen Use: No Review of Systems Review of Systems: All systems reviewed & are unremarkable except as noted in HPI & below Physical Exam Physical Exam: General: Comfortable, no acute distress Eyes: Sclerae anicteric, extraocular movements intact HENT: Oropharynx clear mucous membranes moist Neck: Normal carotid upstrokes, no bruits. No JVD. Lungs: Clear to auscultation bilaterally, no rhonchi or wheezes Cardiac: Regular rate and rhythm, no murmurs Vascular: 2+ radial Abdomen: Soft, nontender, nondistended, positive bowel sounds. Extremities: Well perfused, no peripheral edema Skin: No rashes or lesions. Neuro: Nonfocal Psych: Alert orient x3, normal affect and mood Results & Data ([facility]) Vital Signs (Past 12 Hours) Vital Signs Temp Pulse Pulse Pulse Resp BP BP 09/06/19 12:56 57 L 09/06/19 11:01 97.9 F 60 20 09/06/19 07:20 97.5 F L 62 18 161/97 H 09/06/19 04:40 98.2 F 62 20 157/96 H 09/06/19 04:31 61 17 145/88 H 09/06/19 04:30 58 L 18 09/06/19 04:01 66 19 147/93 H 09/06/19 04:00 65 20 09/06/19 03:31 66 19 141/95 H 09/06/19 03:30 65 19 09/06/19 03:01 71 21 142/88 H 09/06/19 03:00 66 21 09/06/19 02:32 68 20 09/06/19 02:31 68 16 145/97 H 09/06/19 02:30 72 20 09/06/19 02:00 65 24 09/06/19 01:31 76 14 132/83 09/06/19 01:30 71 20 BP Pulse Ox 09/06/19 12:56 09/06/19 11:01 167/105 H 91 09/06/19 07:20 93 09/06/19 04:40 92 09/06/19 04:31 09/06/19 04:30 09/06/19 04:01 90 09/06/19 04:00 09/06/19 03:31 09/06/19 03:30 09/06/19 03:01 09/06/19 03:00 09/06/19 02:32 91 09/06/19 02:31 92 09/06/19 02:30 91 09/06/19 02:00 90 09/06/19 01:31 91 09/06/19 01:30 92 PG Care Time/CCT Total # of Minutes Spent Total Time Spent with Patient: Total time spent is greater than 50% in coordination of care (as documented) at patient's floor/unit and/or counseling patient: Coding Level of Care Code 58438 Inpt Consult Level 4 Diagnoses Chest pain R07.9 Chest pain type: unspecified (1) Chest pain Chest pain type: unspecified Qualified Code(s): R07.9 - Chest pain, unspecified
--- NOTE | 2019-09-06 14:17 | Electrocardiogram Report ---
Test Reason : Blood Pressure : / mmHG Vent. Rate : 085 BPM Atrial Rate : 085 BPM P-R Int : 146 ms QRS Dur : 086 ms QT Int : 362 ms P-R-T Axes : 051 019 041 degrees QTc Int : 430 ms Poor data quality, interpretation may be adversely affected Normal sinus rhythm Nonspecific ST abnormality Abnormal ECG When compared with ECG of 30-MAY-2018 14:46, No significant change was found Confirmed by Madhav Doan ([id number]) on 09/06/2019 2:17:29 PM Referred By: REFERRED SELF Confirmed By:Madhav Doan
--- NOTE | 2019-09-06 15:51 | Discharge Summary ---
Date of Service September 06, 2019 Admission HPI Per Admitting Provider 74 y/o male presented to the ED with episode of 10/10 chest pain that radiated to the epigastric region while watching TV. He had taken TUMS at home with no relief. En route, NTG relieved his symptoms. He reports that since he started using stationary bike, he is getting exertional L arm pain and weakness. No F/C, cough, SOB, N/V/D or lightheadedness. Primary Care Provider: Karrie Hernandez MD Admission Exam Per Admitting Provider Physical Exam: General- adult male, NAD. Head- atraumatic Eyes- PERRL, EOMI, anicteric ENT- oropharynx clear Neck- supple, no JVD, no adenopathy, no thyromegaly. Lungs- CTA b/l no R/R/W. Heart- regular rhythm; no murmur, no gallop, no rub appreciated Abdomen- normal bowel sounds, soft, nontender. Extremities- no pretibial edema, no calf tenderness; peripheral pulses intact Neuro- alert, oriented x 3; PERRL, EOMI; rn transition II-XII grossly intact, non-focal. Skin- warm & dry Principal Diagnosis Atypical Chest Pain, Reflux Discharge Exam Constitutional WD/WN, vitals as above no acute distress Eyes + anicteric sclerae and PERRL Neck trachea midline, no thyromegaly Respiratory normal respiratory effort, lungs clear to auscultation Cardiovascular RRR, no murmur, no edema Gastrointestinal (Abdomen) normal bowel sounds, soft, nontender, no hepatosplenomegaly Musculoskeletal no cyanosis or clubbing, extremities motor strength 5/5 Skin no rashes, warm and dry Neurologic PERRL, EOMI, accommodation nl, no face palsy, no dysarthria Psychiatric A+Ox3, euthymic affect Lymphatic no cervical or axillary lymphadenopathy Discharge Data Allergies Allergy/AdvReac Type Severity Reaction Status Date / Time Penicillins Allergy Unknown HIVES Verified 09/12/19 13:59 venlafaxine Allergy Unknown Unknown Verified 09/12/19 13:59 Consultations 09/06/19 03:18 ED Decision to Admit Stat 09/06/19 05:19 Consult Cardiology Routine Ordered Studies 09/05/19 23:[address] angio chest dissec wo/w con Urgent 09/06 Dobutamine Stress Hospital Course (1) Chest pain: * Admitted for chest pain, 05/03 with radiation to epigastric region different than previous chest pain. Patient stated "reflux attacks" in the past and had been on a PPI, omeprazole. * Chest pain resolved. Troponins negative x 3. * Cardiology consult * Dobutamine stress unremarkable. * Patient received protonix 40mg during admission as omeprazole non-formulary. Symptoms resolved. Increased to protonix 40mg PO BID (2) GERD (gastroesophageal reflux disease): * Continued omeprazole --> transitioned to protonix 40mg BID, as patient improved with protonix during this admission and has had intermittent reflux/pain for years (3) Hyperprolactinemia: * Continued cabergoline (4) COPD (chronic obstructive pulmonary disease): * Prn albuterol nebs * Continued Asmanex (5) Anxiety: * Continued alprazolam (6) HTN (hypertension): * BP 148/91 * Continued lisinopril, metoprolol, nifedipine. Discharged home with . Follow up with PCP as outpatient. Total Time Total Time Spent Total Time Spent (In Minutes): 45 Discharge Plan Discharge Items Patient Disposition: Home - Self-Care Reason For Visit: CHEST PAIN Discharge Diagnosis: Atypical Chest Pain, Reflux Condition on Discharge: Good Goals: You have been hospitalized for an acute medical problem. During your stay at [facility], we have made an effort to correct the problem that brought you to the hospital while keeping you as comfortable as possible. Medications were used to bring your condition under control and your discharge instructions will include directions for any medications you should take after leaving the hospital. Please make sure you see your Primary Care Provider as part of your follow up plan. Activity: Resume your previous activity Non-emergency contact: Primary Care Provider Call non-emergency contact if: you have any medication questions, your symptoms worsen and your pain is not controlled Follow-up/Referrals: Karrie Hernandez MD [Primary Care Provider] - 09/12/19 2:00 am Diet: Heart Healthy Addtl Attending Provider Instructions: You have been hospitalized for chest pain that has been different from previous pain. Labs were drawn to check for any injury/damage to your heart. Those results have all been negative. Dr. Swenson saw you while you were inpatient (your labor and employment paralegal) and a dobutamine stress test was performed that was also negative. It is likely that this may be related to reflux, and you are being sent a prescription for Protonix (pantoprazole) 40mg by mouth TWICE daily. This will r eplace your Omeprazole. Please follow up with your primary care provider in the next 3-5 days. Please return to the emergency room if you develop any worsening chest pain, shortness of breath, or for any symptoms that are concerning for you. It has been a pleasure being a part of the care team providing for you while you have been in the hospital. Take care! Pending Studies at Discharge: No Stand-Alone Forms: My [facility] Medications and DC Order Prescriptions: Continued metoprolol tartrate 25 mg tablet 25 mg PO BID Qty: 180 RF: 2 Asmanex Twisthaler 220 mcg/ actuation (60) aerosol powdr breath activated 1 puffs INH BID Qty: 3 RF: 3 lisinopril 30 mg tablet 30 mg PO DAILY Qty: 90 RF: 3 alprazolam 0.5 mg tablet 0.5 mg PO TID Qty: 90 RF: 2 cabergoline 0.5 mg tablet 0.25 mg PO 2XWK Qty: 27 RF: 3 cyanocobalamin (vitamin B-12) [Vitamin B-12] 1,000 mcg Tablet 1,000 mcg PO DAILY RF: 0 aspirin [Aspir-81] 81 mg Tablet,Delayed Release (Dr/Ec) 81 mg PO DAILY RF: 0 albuterol sulfate 90 mcg/actuation Hfa Aerosol Inhaler 2 puff INHALATION Q4H PRN (Reason: Shortness Of Breath Or Wheezing) RF: 0 Centrum Silver Men 300-600-300 mcg Tablet 1 tab PO DAILY RF: 0 cholecalciferol (vitamin D3) [Vitamin D3] 25 mcg (1,000 unit) capsule 1,000 unit PO DAILY PRN (Reason: pt desire) RF: 0 nifedipine 30 mg tablet extended release 24hr 30 mg PO DAILY RF: 0 Discontinued omeprazole 40 mg capsule,delayed release(DR/EC) 40 mg PO DAILY RF: 0 No Action omeprazole 40 mg capsule,delayed release(DR/EC) 40 mg PO BID Qty: 60 RF: 4 Discharge Orders: Discharge Order (Routine); Ordered 09/06/19 Ordered By: Nataly Ojeda Admission Data Admit Date/Time: 02/13/20 03:36 Attending Provider: Niko Gray Admit Provider: Salinas Ramirez Primary Care Provider: Karrie Hernandez Other Providers: Salinas Ramirez ; Madhav Doan Other Interventions: Discharge Summary Assessment (RN) Last Done: 09/06/19 16:36 DC Date/Time DO NOT enter until pt leaves facility: 09/06/19 17:37 Supervising Physician Co-Signing Physician Notes Attending Attestation and Discharge Note: Pt seen/examined, chart reviewed, care plan d/w PA Nataly Ojeda. I agree w/ the sweeney components of her discharge summary. 74yo male w/ COPD who presented with chest pain. CTA chest neg for PE or dissection. Underwent dobutamine stress echo and this was negative for ischemia. Troponins were negative. Tele was normal. Symptoms felt 2nd to GERD - PPI increased to bid dosing. Patient asked to f/u with PCP and consider GI referral. Discharge exam: gen - NAD heart - RRR lungs - CTA b/l abd - soft ND BS+ no tenderness ext - no edema Niko Gray MD Coding Level of Care Code Admit/DC Same Day >8hr Level 3 Diagnoses Chest pain R07.9 Chest pain type: unspecified GERD (gastroesophageal reflux disease) K21.9 Esophagitis presence: esophagitis presence not specified Hyperprolactinemia E22.1 COPD (chronic obstructive pulmonary disease) J44.9 Anxiety F41.9 HTN (hypertension) I10 Hypertension type: unspecified
--- NOTE | 2019-09-06 17:11 | XCELERA ---
[id number] [id number]
== END 2019-09-06 17:37 | disposition home or self-care (01) ==
LOC: 2S 22:53 → ED 22:53 → SUATTDRO 09-06 03:36 → 2S 09-06 05:00